=== PATIENT | female | born 1950 | race Hispanic/Latino ===

== ENCOUNTER 2017-01-07 14:54 | Inpatient (IN) | payer MEDICARE, OTHER ==
[2017-01-07 14:54] VITALS: BMI 33.4
[2017-01-07] MEDS ORDERED: Albuterol-Ipratrop 3 mg / 0.5 (3 ml) UD INH STA (15:32)
--- NOTE | 2017-01-07 15:51 | RAD ---
HISTORY: SOB COMPARISON: Chest x-ray performed 10/31/16 TECHNIQUE: Chest PA and lateral FINDINGS: Examination limited by habitus. LUNGS: No focal consolidation. Please note that chest x-ray has limited sensitivity for the detection of pulmonary masses. PLEURA: No significant pleural effusion identified. No definite pneumothorax . CARDIOVASCULAR: Cardiomegaly. Atherosclerotic calcifications of the aorta. OSSEOUS STRUCTURES: No acute osseous abnormality identified. VISUALIZED UPPER ABDOMEN: Unremarkable. OTHER FINDINGS: None. IMPRESSION: Cardiomegaly.
[2017-01-07] MEDS ORDERED: Albuterol-Ipratrop 3 mg / 0.5 (3 ml) UD ONE (16:01)
--- NOTE | 2017-01-07 16:40 | ED PDOC ---
HPI: General Adult Time Seen by Provider: 01/07/17 15:31 Chief Complaint (Nursing): Shortness Of Breath Chief Complaint (Provider): cough History Per: Patient History/Exam Limitations: no limitations Additional Complaint(s): 66yo female w/ Hx COPD is sent from Dr. Patterson's office for complaint of persistent cough, shortness of breath, sore throat, tactile fever, generalized malaise. She's been using nebulizers at home without relief. No recent hospitalizations. PMD: Leonardo Past Medical History Reviewed: Historical Data, Nursing Documentation, Vital Signs Vital Signs: Last Vital Signs Temp 100.4 F H 01/07/17 15:23 Pulse 63 01/07/17 15:23 Resp 20 01/07/17 15:23 BP 119/52 L 01/07/17 15:23 Pulse Ox 99 01/07/17 16:54 - Medical History PMH: Asthma, Gastritis, HTN, Migraine, Rheumatoid Arthritis Denies: HIV - Surgical History Surgical History: - Family History Family History: States: Unknown Family Hx - Home Medications Home Medications: Ambulatory Orders Medication Instructions Recorded Albuterol Sulfate [Proair Hfa] 2 puff IH Q6 PRN 02/15/15 Hydralazine Hydrochloride 50 mg PO TID 02/15/15 [Apresoline] Montelukast Sodium [Singulair] 10 mg PO HS 02/15/15 Albuterol/Ipratropium [Duoneb 3 3 ml INH RTID #0 neb 02/17/15 mg/0.5 mg (3 ml) UD] Aluminum Hydroxide/Magnesium 30 ml PO Q8 PRN #0 udc 02/17/15 [Maalox Plus 30 ml] Azithromycin 500MG/NS 250ml 500 mg IV DAILY #0 bag 02/17/15 [Zithromax 500mg in NS] Enoxaparin [Lovenox] 40 mg SC DAILY #0 syr 02/17/15 Ibuprofen [Motrin Tab] 600 mg PO Q8 PRN #0 tab 02/17/15 Lidocaine 5% [Lidoderm] 1 ea TD DAILY #0 patch 02/17/15 Metoprolol Tartrate [Lopressor] 25 mg PO DAILY #0 tab 02/17/15 Pantoprazole [Protonix EC Tab] 40 mg PO DAILY #0 ect 04/30/15 Valsartan [Diovan] 320 mg PO DAILY #0 tab 02/17/15 cefTRIAXone 1 gm [Rocephin 1 gram 1 gm IV DAILY #0 bag 02/17/15 IVPB] Azithromycin [Zithromax Z-Cosmo] 250 mg PO DAILY #0 tab 02/25/15 Promethazine [Promethazine HCl] 6.25 mg PO Q6 PRN #120 oz 02/25/15 Oxycodone HCl/Acetaminophen 1 tab PO Q6 #15 tab 05/09/15 [Percocet 325 mg-5 mg] DiphenhydrAMINE [Benadryl] 2 tab PO Q6 PRN #24 cap 01/19/16 Prednisone 3 tab PO DAILY #12 tablet 01/19/16 Prednisone 50 mg PO DAILY #5 tablet 06/17/16 - Allergies Allergies/Adverse Reactions: Allergies Allergy/AdvReac Type Severity Reaction Status Date / Time levofloxacin [From Levaquin] Allergy RASH Verified 06/17/16 01:03 shrimp Allergy RASH Verified 06/17/16 01:04 hair dye Allergy RASH Uncoded 06/17/16 01:04 Review of Systems ROS Statement: Except As Marked, All Systems Reviewed And Found Negative Constitutional: Positive for: Fever (tactile) ENT: Positive for: Throat Pain Respiratory: Positive for: Cough, Shortness of Breath Physical Exam - Reviewed Nursing Documentation Reviewed: Yes Vital Signs Reviewed: Yes - Physical Exam Appears: Positive for: Well, Non-toxic, No Acute Distress Head Exam: Positive for: ATRAUMATIC, NORMAL INSPECTION, NORMOCEPHALIC Skin: Positive for: Warm, Dry Eye Exam: Positive for: EOMI, PERRL Cardiovascular/Chest: Positive for: Regular Rate, Rhythm Respiratory: Positive for: Wheezing (bilaterally). Negative for: Rales, Rhonchi Gastrointestinal/Abdominal: Positive for: Soft. Negative for: Tenderness Extremity: Negative for: Other (edema) Neurologic/Psych: Positive for: Alert, Oriented - Laboratory Results Result Diagrams: 01/07/17 15:58 01/07/17 15:58 - ECG ECG: Positive for: Interpreted By Me ECG Rhythm: Positive for: Sinus Rhythm, ST/T Changes, Nonspecific Changes Rate: 91 O2 Sat by Pulse Oximetry: 99 (RA) Pulse Ox Interpretation: Normal - Radiology X-Ray: Read By Radiologist X-Ray Interpretation: No Acute Disease Medical Decision Making Medical Decision Making: Workup initiated for COPD exacerbation w low grade fever. Duoneb, solumedrol given. Family member also in ED sick w similar symptoms. Labs reviewed + flu trop neg EKG +changes inferiorlaterally. ASA 81mg ordered. Admit tele. Droplet isol. D/w Dr Patterson PMD. Disposition - Clinical Impression Clinical Impression: Influenza, Obstructive chronic bronchitis with exacerbation, Abnormal electrocardiography - Patient ED Disposition Is Patient to be Admitted: Yes Counseled Patient/Family Regarding: Studies Performed, Diagnosis, Need For Followup - Disposition Disposition: Routine/Home Disposition Time: 17:05 Condition: STABLE - Pt Status Changed To: Hospital Disposition Of: Inpatient - Admit Certification Admit to Inpatient:: After my assessment, the patient will require hospitalization for at least two midnights. This is because of the severity of symptoms shown, intensity of services needed, and/or the medical risk in this patient being treated as an outpatient. - POA Present On Arrival: None Additional Comments - Additional Comments Additional Comments: Scribe Attestation: Documented by Camilo Mosqueda acting as a scribe for Sukumar Comer DO. Provider Scribe Attestation: All medical record entries made by the Scribe were at my direction and personally dictated by me. I have reviewed the chart and agree that the record accurately reflects my personal performance of the history, physical exam, medical decision making, and the department course for this patient. I have also personally directed, reviewed, and agree with the discharge instructions and disposition.
[2017-01-07 17:02] LABS: BASO # 0.1 K/uL (0.0-0.2); BASO % 0.8 % (0.0-2.0); EOS % 0.2 % (0.0-4.0); HEMATOCRIT 36.1 % (34.0-47.0); LYMPH # 1.5 K/uL (1.0-4.3); LYMPH % 23.7 % (20.0-40.0); MEAN CELL VOLUME 77.2 fl (81.0-99.0); MEAN CORPUSCULAR HEMOGLOBIN 24.5 pg (27.0-31.0); MEAN CORPUSCULAR HGB CONC 31.8 g/dL (33.0-37.0); MEAN PLATELET VOLUME 8.7 fl (7.2-11.7); MONO # 0.8 K/uL (0.0-0.8); MONO % 12.3 % (0.0-10.0); NEUT # 3.9 K/uL (1.8-7.0); NRBC % 0.1 % (0.0-0.0); WHITE BLOOD COUNT 6.3 K/uL (4.8-10.8)
[2017-01-07 17:09] LABS: ALB/GLOB RATIO 0.9 (1.0-2.1); ALKALINE PHOSPHATASE 92 U/L (38-126); ALT/SGPT 38 U/L (9-52); AST/SGOT 48 U/L (14-36); BILIRUBIN,TOTAL 0.3 mg/dl (0.2-1.3); BLOOD UREA NITROGEN 48 mg/dl (7-17); CALCIUM 9.3 mg/dL (8.4-10.2); CARBON DIOXIDE 20 mmol/L (22-30); CHLORIDE 100 mmol/L (98-107); GFR AFRICAN-AMERICAN 26; GLUCOSE,RANDOM 161 mg/dL (65-105); POTASSIUM 3.8 MMOL/L (3.6-5.0); SODIUM 136 mmol/l (132-148); TOTAL PROTEIN 8.6 G/DL (6.3-8.2)
[2017-01-08] MEDS ORDERED: Sodium Chloride 3% for Inhalation 4 ML VIAL.NEB IH PRN (04:17)
--- NOTE | 2017-01-08 07:15 | CARD ---
APPROVED REPORT EKG Measurement Heart [id number] <Conclusion> Normal sinus rhythm ST & T wave abnormality, consider inferior ischemia ST & T wave abnormality, consider anterolateral ischemia Abnormal ECG
[2017-01-08 07:30] LABS: BASO % 0.6 % (0.0-2.0); HEMATOCRIT 33.5 % (34.0-47.0); LYMPH # 0.9 K/uL (1.0-4.3); LYMPH % 32.4 % (20.0-40.0); MEAN CORPUSCULAR HEMOGLOBIN 24.8 pg (27.0-31.0); MEAN CORPUSCULAR HGB CONC 32.6 g/dL (33.0-37.0); MEAN PLATELET VOLUME 8.6 fl (7.2-11.7); MONO # 0.3 K/uL (0.0-0.8); MONO % 9.4 % (0.0-10.0); NEUT # 1.6 K/uL (1.8-7.0); NEUT % 57.6 % (50.0-75.0); NRBC % 0.1 % (0.0-0.0); RED CELL DISTRIBUTION WIDTH 17.6 % (11.5-14.5); WHITE BLOOD COUNT 2.8 K/uL (4.8-10.8)
[2017-01-08 07:51] LABS: CALCIUM 9.5 mg/dL (8.4-10.2); POTASSIUM 4.5 MMOL/L (3.6-5.0); TOTAL PROTEIN 8.2 G/DL (6.3-8.2)
[2017-01-08 07:52] LABS: ALB/GLOB RATIO 0.9 (1.0-2.1); BILIRUBIN,TOTAL 0.1 mg/dl (0.2-1.3)
[2017-01-08] MEDS: Albuterol-Ipratrop 3 mg / 0.5 (3 ml) UD INH SCH ×3 (07:53→19:21)
[2017-01-08] MEDS: Pantoprazole 40 mg EC Tab PO SCH (08:24)
[2017-01-08] MEDS: Naproxen 500 MG TAB PO SCH ×2 (08:25→21:39)
[2017-01-08] MEDS: methylPREDNISolone 60 MG in Sodium Chloride 0.9% 50 ML IVPB SCH ×2 (08:26→16:35)
[2017-01-08] MEDS: Dextrose 5%/0.45% NS 1,000 ML IV SCH (09:05)
--- NOTE | 2017-01-08 11:29 | CP.PCM.CON ---
History of Present Illness - History of Present Illness History of Present Illness: THE PATIENT IS A 66 YEAR OLD MALE WITH A HISTORY OF HYPERTENSION, CHEST PAIN AND COPD. SHE HAD CHEST PAIN ON AND OFF FOR A FEW YEARS AND HAD A RECENT STRESS TEST THAT WAS NORMAL. SHE NOW HAS COPD EXACERBATION FROM THE FLU AND WAS ADMITTED. CARDIOLOGY WAS ASKED TO SEE HER FOR HER HYPERTENSION. Past Patient History - Past Medical History & Family History Past Medical History?: Yes - Past Social History Smoking Status: Unknown If Ever Smoked - CARDIAC Hx Cardiac Disorders: Yes (HTN) - PULMONARY Hx Respiratory Disorders: Yes (COPD/chronic bronchitis) - NEUROLOGICAL Hx Neurological Disorder: Yes (Migraines) - HEENT Hx HEENT Problems: Yes - HEMATOLOGICAL/ONCOLOGICAL Hx Human Immunodeficiency Virus (HIV): No - MUSCULOSKELETAL/RHEUMATOLOGICAL Hx Musculoskeletal Disorders: Yes (Arthritis) Hx Falls: No - GASTROINTESTINAL Hx Gastritis: Yes - PSYCHIATRIC Hx Psychophysiologic Disorder: Yes Hx Substance Use: No - SURGICAL HISTORY Hx Surgeries: Yes Hx Section: Yes - ANESTHESIA Hx Anesthesia: Yes Hx Anesthesia Reactions: No Meds Allergies/Adverse Reactions: Allergies Allergy/AdvReac Type Severity Reaction Status Date / Time levofloxacin [From Levaquin] Allergy RASH Verified 06/17/16 01:03 shrimp Allergy RASH Verified 06/17/16 01:04 hair dye Allergy RASH Uncoded 06/17/16 01:04 - Medications Medications: Current Medications Albuterol/Ipratropium (Duoneb 3 Mg/0.5 Mg (3 Ml) Ud) 3 ml INH RQ6 [facility] Last Admin: 01/08/17 07:53 Dose: 3 ml Amlodipine Besylate (Norvasc) 5 mg PO DAILY [facility] Last Admin: 01/08/17 11:11 Dose: 5 mg Hydralazine HCl (Apresoline) 50 mg PO TID [facility] Last Admin: 01/08/17 11:09 Dose: Not Given Ceftriaxone Sodium 1 gm/ (Sodium Chloride) 100 mls @ 100 mls/hr IVPB DAILY [facility] Last Admin: 01/08/17 08:27 Dose: 100 mls/hr Methylprednisolone 60 mg/ (Sodium Chloride) 50.96 mls @ 100 mls/hr IVPB Q8 [facility] Last Admin: 01/08/17 08:26 Dose: 100 mls/hr Dextrose/Sodium Chloride (Dextrose 5%/0.45% Ns 1000 Ml) 1,000 mls @ 60 mls/hr IV .[id number] [facility] Stop: 01/09/17 08:31 Last Admin: 01/08/17 09:05 Dose: Not Given Naproxen (Naproxen) 500 mg PO Q12 [facility] Last Admin: 01/08/17 08:25 Dose: 500 mg Oseltamivir Phosphate (Tamiflu Cap) 75 mg PO BID [facility] Last Admin: 01/08/17 08:24 Dose: 75 mg Pantoprazole Sodium (Protonix Ec Tab) 40 mg PO DAILY [facility] Last Admin: 01/08/17 08:24 Dose: 40 mg Promethazine HCl/Dextromethorphan (Phenergan Dm Syrup) 5 ml PO Q4 PRN PRN Reason: Cough Physical Exam - Respiratory Exam Respiratory Exam: Wheezes - Cardiovascular Exam Cardiovascular Exam: REGULAR RHYTHM, +S1, +S2 - Extremities Exam Extremities exam: Positive for: normal inspection Results - Vital Signs Recent Vital Signs: Last Vital Signs Temp 98.3 F 01/08/17 08:18 Pulse 56 L 01/08/17 11:11 Resp 18 01/08/17 08:18 BP 121/69 01/08/17 11:11 Pulse Ox 96 01/08/17 08:18 - Labs Result Diagrams: 01/08/17 06:25 01/08/17 06:25 Labs: Laboratory Results - last 24 hr 01/08/17 06:25 WBC 2.8 L D RBC 4.41 Hgb 10.9 L Hct 33.5 L MCV 76.0 L MCH 24.8 L MCHC 32.6 L RDW 17.6 H Plt Count 250 MPV 8.6 Neut % (Auto) 57.6 Lymph % (Auto) 32.4 [place] % (Auto) 9.4 Eos % (Auto) 0.0 Baso % (Auto) 0.6 Neut # 1.6 L Lymph # 0.9 L [place] # 0.3 Eos # 0.0 Baso # 0.0 Sodium 140 Potassium 4.5 Chloride 102 Carbon Dioxide 22 Anion Gap 21 H BUN 52 H Creatinine 1.3 H Est GFR ( Amer) 50 Est GFR (Non-Af Amer) 41 Random Glucose 321 H Calcium 9.5 Total Bilirubin 0.1 L AST 34 ALT 28 Alkaline Phosphatase 93 Total Protein 8.2 Albumin 3.9 Globulin 4.3 H Albumin/Globulin Ratio 0.9 L Assessment & Plan - Assessment and Plan (Free Text) Assessment: FLU WITH COPD EXACERBATION HYPERTENSION Plan: THE PATIENT IS ON O2, AMLODIPINE AND HYDRALAZINE WELL TAMIFLU, ANTIBIOTICS AND VASODILATORS METOPROLOL HELD FOR NOW DUE TO WHEEZING
--- NOTE | 2017-01-08 12:20 | HP ---
The patient is a 66-year-old female who was admitted via the Emergency Room after she was seen in the office complaining of progressively worsening shortness of breath, exercise intolerance, chest tight ness for the past several days prior to presentation. She has been exposed to the daughter who has t he flu and was sent to the Emergency Room where evaluation indicates that she also has the flu. She was admitted with acute exacerbation of chronic obstructive pulmonary disease secondary to the flu. PAST MEDICAL HISTORY: Remarkable for COPD, hypertension, hyperlipidemia, arthritis. FAMILY HISTORY: Noncontributory. SOCIAL HISTORY: She does not smoke or drink. REVIEW OF SYSTEMS: Essentially unremarkable. PHYSICAL EXAMINATION: GENERAL: The patient is alert and oriented, appears to be in some distress because of chest tightnes s, shortness of breath and exercise intolerance. VITAL SIGNS: Blood pressure 121/69, pulse of 56, respiratory rate 18, O2 sat 96% on 3 liters nasal c annula. SKIN: Shows fair turgor. HEENT: Pupils equal and reactive to light and accommodation. Mouth shows fair hygiene with mild muc us engorgement of pharynx. NECK: JVP flat. LUNGS: Show poor aeration bilaterally with rales and wheezing, dullness at the bases. HEART: S1, S2. ABDOMEN: Soft, nontender, no organomegaly. EXTREMITIES: Shows no edema or cyanosis. CENTRAL NERVOUS SYSTEM: Grossly intact. LABORATORY DATA: Remarkable for WBC of 2.8, hemoglobin 10.9, platelet count 250,000. Sodium 140, po tassium 4.5, BUN of 52, creatinine 1.3. Troponin less than 0.012. Chest x-ray shows no acute cardio pulmonary pathology except for mild cardiomegaly and calcification of the aorta. EKG: Normal sinus rhythm, ST-T wave abnormality, consider inferior ischemia, consider anterolateral ischemia. IMPRESSION: Acute exacerbation of chronic obstructive pulmonary disease secondary to the flu, leukop enia secondary to the flu, hypertension by history, arthritis by history. PLAN: Continue IV antibiotics, Tamiflu for the flu, and aerosolized bronchodilators. Repeat labs. Monitor blood pressure closely. Benjamin Patterson MD cc: 62 TT: 01/08/2017 12:20:04 sn
[2017-01-09] MEDS: Albuterol-Ipratrop 3 mg / 0.5 (3 ml) UD INH SCH ×4 (01:04→19:06)
[2017-01-09] MEDS: methylPREDNISolone 60 MG in Sodium Chloride 0.9% 50 ML IVPB SCH ×2 (01:07→10:00)
[2017-01-09] MEDS: Dextrose 5%/0.45% NS 1,000 ML IV SCH (05:07)
[2017-01-09 07:05] LABS: BASO % 0.1 % (0.0-2.0); HEMATOCRIT 33.9 % (34.0-47.0); LYMPH # 0.9 K/uL (1.0-4.3); LYMPH % 12.1 % (20.0-40.0); MEAN CELL VOLUME 75.9 fl (81.0-99.0); MEAN CORPUSCULAR HEMOGLOBIN 24.7 pg (27.0-31.0); MEAN CORPUSCULAR HGB CONC 32.5 g/dL (33.0-37.0); MEAN PLATELET VOLUME 8.6 fl (7.2-11.7); MONO # 0.5 K/uL (0.0-0.8); MONO % 6.1 % (0.0-10.0); NEUT # 6.4 K/uL (1.8-7.0); NEUT % 81.7 % (50.0-75.0); RED CELL DISTRIBUTION WIDTH 17.8 % (11.5-14.5); WHITE BLOOD COUNT 7.8 K/uL (4.8-10.8)
[2017-01-09 07:29] LABS: BLOOD UREA NITROGEN 43 mg/dl (7-17); CALCIUM 9.5 mg/dL (8.4-10.2); CARBON DIOXIDE 20 mmol/L (22-30); CHLORIDE 108 mmol/L (98-107); GFR AFRICAN-AMERICAN > 60; GLUCOSE,RANDOM 322 mg/dL (65-105); POTASSIUM 4.5 MMOL/L (3.6-5.0); SODIUM 140 mmol/l (132-148)
--- NOTE | 2017-01-09 08:46 | CP.PCM.PN ---
Subjective - Date & Time of Evaluation Date of Evaluation: 01/09/17 Time of Evaluation: 08:48 - Subjective Subjective: STILL COUGHING WITH SORETHROAT AND SOB Objective - Vital Signs/Intake and Output Vital Signs (last 24 hours): Temp Pulse Resp BP Pulse Ox 97.9 F 79 20 158/77 H 99 01/09/17 08:18 01/09/17 08:18 01/09/17 08:18 01/09/17 08:18 01/09/17 08:18 - Medications Medications: Current Medications Albuterol/Ipratropium (Duoneb 3 Mg/0.5 Mg (3 Ml) Ud) 3 ml INH RQ6 [facility] Last Admin: 01/09/17 07:28 Dose: 3 ml Amlodipine Besylate (Norvasc) 5 mg PO DAILY [facility] Last Admin: 01/08/17 11:11 Dose: 5 mg Hydralazine HCl (Apresoline) 50 mg PO TID [facility] Last Admin: 01/08/17 16:03 Dose: 50 mg Ceftriaxone Sodium 1 gm/ (Sodium Chloride) 100 mls @ 100 mls/hr IVPB DAILY [facility] Last Admin: 01/08/17 08:27 Dose: 100 mls/hr Methylprednisolone 60 mg/ (Sodium Chloride) 50.96 mls @ 100 mls/hr IVPB Q8 [facility] Last Admin: 01/09/17 01:07 Dose: 100 mls/hr Naproxen (Naproxen) 500 mg PO Q12 [facility] Last Admin: 01/08/17 21:39 Dose: 500 mg Oseltamivir Phosphate (Tamiflu Cap) 75 mg PO BID [facility] Last Admin: 01/08/17 16:04 Dose: 75 mg Pantoprazole Sodium (Protonix Ec Tab) 40 mg PO DAILY [facility] Last Admin: 01/08/17 08:24 Dose: 40 mg Promethazine HCl/Dextromethorphan (Phenergan Dm Syrup) 5 ml PO Q4 PRN PRN Reason: Cough - Labs Labs: 01/09/17 06:35 01/09/17 06:35 - Constitutional Appears: In Acute Distress - Head Exam Head Exam: ATRAUMATIC, NORMAL INSPECTION, NORMOCEPHALIC - Eye Exam Eye Exam: EOMI, Normal appearance, PERRL Pupil Exam: NORMAL ACCOMODATION, PERRL - ENT Exam ENT Exam: Mucous Membranes Moist, Normal Exam - Neck Exam Neck Exam: Full ROM, Normal Inspection. absent: Lymphadenopathy - Respiratory Exam Respiratory Exam: Decreased Breath Sounds, Rales, Wheezes, NORMAL BREATHING PATTERN - Cardiovascular Exam Cardiovascular Exam: REGULAR RHYTHM, +S1, +S2. absent: Murmur - GI/Abdominal Exam GI & Abdominal Exam: Soft, Normal Bowel Sounds. absent: Tenderness - Rectal Exam Rectal Exam: NORMAL INSPECTION - Extremities Exam Extremities Exam: Full ROM, Normal Capillary Refill, Normal Inspection. absent : Joint Swelling, Pedal Edema - Back Exam Back Exam: NORMAL INSPECTION - Neurological Exam Neurological Exam: Alert, Awake, CN II-XII Intact, Normal Gait, Oriented x3 - Psychiatric Exam Psychiatric exam: Normal Affect, Normal Mood - Skin Skin Exam: Dry, Intact, Normal Color, Warm Assessment and Plan - Assessment and Plan (Free Text) Assessment: ACUTE EXAC OF COPD HTN FLU URI ABNORMAL EKG DUE TO HTN HEART DZ Plan: CONTINUE RX ORDERED TRANSFER TO REGULAR FLOOR
[2017-01-09] MEDS: Naproxen 500 MG TAB PO SCH ×2 (08:53→21:05)
[2017-01-09] MEDS: Pantoprazole 40 mg EC Tab PO SCH (08:54)
[2017-01-09] MEDS: Mag&Al/Simet/Diphen/Lido 237 ML KIT PO SCH (10:00)
[2017-01-09] MEDS ORDERED: Insulin Regular 100 units/ml SC ONE (12:03)
--- NOTE | 2017-01-09 13:00 | CP.PCM.PN ---
Subjective - Date & Time of Evaluation Date of Evaluation: 01/09/17 Time of Evaluation: 12:30 - Subjective Subjective: STILL WITH COUGH AND SOB NO CHEST PAIN Objective - Vital Signs/Intake and Output Vital Signs (last 24 hours): Temp Pulse Resp BP Pulse Ox 97.7 F 72 18 157/71 H 97 01/09/17 12:29 01/09/17 12:29 01/09/17 12:29 01/09/17 12:29 01/09/17 12:29 - Medications Medications: Current Medications Acetylcysteine (Acetylcysteine 20%) 2 ml INH RBID [facility] Albuterol/Ipratropium (Duoneb 3 Mg/0.5 Mg (3 Ml) Ud) 3 ml INH RQ6 [facility] Last Admin: 01/09/17 07:28 Dose: 3 ml Amlodipine Besylate (Norvasc) 5 mg PO DAILY [facility] Last Admin: 01/09/17 08:54 Dose: 5 mg Hydralazine HCl (Apresoline) 50 mg PO TID [facility] Last Admin: 01/09/17 12:18 Dose: 50 mg Ceftriaxone Sodium 1 gm/ (Sodium Chloride) 100 mls @ 100 mls/hr IVPB DAILY [facility] Last Admin: 01/09/17 08:54 Dose: 100 mls/hr Methylprednisolone 40 mg/ (Sodium Chloride) 50.64 mls @ 100 mls/hr IVPB Q12 [facility] Naproxen (Naproxen) 500 mg PO Q12 [facility] Last Admin: 01/09/17 08:53 Dose: 500 mg Oseltamivir Phosphate (Tamiflu Cap) 75 mg PO BID [facility] Last Admin: 01/09/17 08:55 Dose: 75 mg Pantoprazole Sodium (Protonix Ec Tab) 40 mg PO DAILY [facility] Last Admin: 01/09/17 08:54 Dose: 40 mg Promethazine HCl/Dextromethorphan (Phenergan Dm Syrup) 5 ml PO Q4 PRN PRN Reason: Cough Saliva Substitute (First Magic Mouthwash) 10 ml PO TID [facility] Last Admin: 01/09/17 10:00 Dose: 10 ml - Labs Labs: 01/09/17 06:35 01/09/17 06:35 - Respiratory Exam Respiratory Exam: Rhonchi, Wheezes - Cardiovascular Exam Cardiovascular Exam: REGULAR RHYTHM - Extremities Exam Extremities Exam: Normal Inspection Assessment and Plan - Assessment and Plan (Free Text) Assessment: FLU WITH COPD EXACERBATION HYPERTENSION Plan: CONTINUE APRESOLINE, AMLODIPINE, TAMIFLU AND ANTIBIOTICS
[2017-01-09] MEDS: Acetylcysteine 20% Inhal Soln (4ml) INH SCH (19:06)
[2017-01-09] MEDS ORDERED: methylPREDNISolone 40 MG in Sodium Chloride 0.9% 50 ML IVPB SCH (21:00)
[2017-01-09] MEDS: Promethazine DM 6.25 mg-15 mg/5 ml Syrup PO PRN (21:08)
[2017-01-10] MEDS: Albuterol-Ipratrop 3 mg / 0.5 (3 ml) UD INH SCH ×4 (01:08→19:31)
[2017-01-10] MEDS: Promethazine DM 6.25 mg-15 mg/5 ml Syrup PO PRN ×2 (05:05→20:25)
[2017-01-10] MEDS: Acetylcysteine 20% Inhal Soln (4ml) INH SCH ×2 (07:48→19:31)
--- NOTE | 2017-01-10 08:11 | CP.PCM.PN ---
Subjective - Date & Time of Evaluation Date of Evaluation: 01/10/17 Time of Evaluation: 08:12 - Subjective Subjective: STILL COUGHING AND DYSPNEIC Objective - Vital Signs/Intake and Output Vital Signs (last 24 hours): Temp Pulse Resp BP Pulse Ox 97.7 F 63 18 156/72 H 100 01/10/17 04:56 01/10/17 04:56 01/10/17 04:56 01/10/17 04:56 01/10/17 04:56 - Medications Medications: Current Medications Acetylcysteine (Acetylcysteine 20%) 2 ml INH RBID [facility] Last Admin: 01/10/17 07:48 Dose: 2 ml Albuterol/Ipratropium (Duoneb 3 Mg/0.5 Mg (3 Ml) Ud) 3 ml INH RQ6 [facility] Last Admin: 01/10/17 07:48 Dose: 3 ml Amlodipine Besylate (Norvasc) 5 mg PO DAILY [facility] Last Admin: 01/09/17 08:54 Dose: 5 mg Hydralazine HCl (Apresoline) 50 mg PO TID [facility] Last Admin: 01/09/17 17:27 Dose: 50 mg Ceftriaxone Sodium 1 gm/ (Sodium Chloride) 100 mls @ 100 mls/hr IVPB DAILY [facility] Last Admin: 01/09/17 08:54 Dose: 100 mls/hr Methylprednisolone 40 mg/ (Sodium Chloride) 50.64 mls @ 100 mls/hr IVPB Q12 [facility] Last Admin: 01/09/17 21:07 Dose: 100 mls/hr Naproxen (Naproxen) 500 mg PO Q12 [facility] Last Admin: 01/09/17 21:05 Dose: 500 mg Oseltamivir Phosphate (Tamiflu Cap) 75 mg PO BID [facility] Last Admin: 01/09/17 17:28 Dose: 75 mg Pantoprazole Sodium (Protonix Ec Tab) 40 mg PO DAILY [facility] Last Admin: 01/09/17 08:54 Dose: 40 mg Promethazine HCl/Dextromethorphan (Phenergan Dm Syrup) 5 ml PO Q4 PRN PRN Reason: Cough Last Admin: 01/10/17 05:05 Dose: 5 ml Saliva Substitute (First Magic Mouthwash) 10 ml PO TID [facility] Last Admin: 01/09/17 10:00 Dose: 10 ml - Labs Labs: 01/09/17 06:35 03/22/17 06:35 - Constitutional Appears: Well - Head Exam Head Exam: ATRAUMATIC, NORMAL INSPECTION, NORMOCEPHALIC - Eye Exam Eye Exam: EOMI, Normal appearance, PERRL Pupil Exam: NORMAL ACCOMODATION, PERRL - ENT Exam ENT Exam: Mucous Membranes Moist, Normal Exam - Neck Exam Neck Exam: Full ROM, Normal Inspection. absent: Lymphadenopathy - Respiratory Exam Respiratory Exam: Decreased Breath Sounds, Clear to Ausculation Bilateral, Rales , NORMAL BREATHING PATTERN - Cardiovascular Exam Cardiovascular Exam: REGULAR RHYTHM, +S1, +S2. absent: Murmur - GI/Abdominal Exam GI & Abdominal Exam: Soft, Normal Bowel Sounds. absent: Tenderness - Rectal Exam Rectal Exam: NORMAL INSPECTION - Extremities Exam Extremities Exam: Full ROM, Normal Capillary Refill, Normal Inspection. absent : Joint Swelling, Pedal Edema - Back Exam Back Exam: NORMAL INSPECTION - Neurological Exam Neurological Exam: Alert, Awake, CN II-XII Intact, Normal Gait, Oriented x3 - Psychiatric Exam Psychiatric exam: Normal Affect, Normal Mood - Skin Skin Exam: Dry, Intact, Normal Color, Warm Assessment and Plan - Assessment and Plan (Free Text) Assessment: ACUTE EXAC OF COPD FLU HTN HYPERGLYCEMIA DUE TO STEROIDS Plan: CONTINUE PRESENT RX TAPER STEROIDS
[2017-01-10] MEDS ORDERED: Sodium Chloride 3% for Inhalation 4 ML VIAL.NEB IH PRN (08:38)
--- NOTE | 2017-01-10 10:15 | CP.PCM.PN ---
Subjective - Date & Time of Evaluation Date of Evaluation: 01/10/17 Time of Evaluation: 07:45 - Subjective Subjective: STILL WITH SOB AND COUGH Objective - Vital Signs/Intake and Output Vital Signs (last 24 hours): Temp Pulse Resp BP Pulse Ox 97.1 F L 66 20 145/80 97 01/10/17 08:28 01/10/17 08:28 01/10/17 08:28 01/10/17 08:28 01/10/17 08:28 - Medications Medications: Current Medications Acetylcysteine (Acetylcysteine 20%) 2 ml INH RBID [facility] Last Admin: 01/10/17 07:48 Dose: 2 ml Albuterol/Ipratropium (Duoneb 3 Mg/0.5 Mg (3 Ml) Ud) 3 ml INH RQ6 [facility] Last Admin: 01/10/17 07:48 Dose: 3 ml Amlodipine Besylate (Norvasc) 5 mg PO DAILY [facility] Last Admin: 01/09/17 08:54 Dose: 5 mg Hydralazine HCl (Apresoline) 50 mg PO TID [facility] Last Admin: 01/09/17 17:27 Dose: 50 mg Ceftriaxone Sodium 1 gm/ (Sodium Chloride) 100 mls @ 100 mls/hr IVPB DAILY [facility] Last Admin: 01/09/17 08:54 Dose: 100 mls/hr Methylprednisolone 40 mg/ (Sodium Chloride) 50.64 mls @ 100 mls/hr IVPB DAILY [facility] Naproxen (Naproxen) 500 mg PO Q12 [facility] Last Admin: 01/09/17 21:05 Dose: 500 mg Oseltamivir Phosphate (Tamiflu Cap) 75 mg PO BID [facility] Last Admin: 01/09/17 17:28 Dose: 75 mg Pantoprazole Sodium (Protonix Ec Tab) 40 mg PO DAILY [facility] Last Admin: 01/09/17 08:54 Dose: 40 mg Promethazine HCl/Dextromethorphan (Phenergan Dm Syrup) 5 ml PO Q4 PRN PRN Reason: Cough Last Admin: 01/10/17 05:05 Dose: 5 ml Saliva Substitute (First Magic Mouthwash) 10 ml PO TID [facility] Last Admin: 01/09/17 10:00 Dose: 10 ml - Labs Labs: 01/09/17 06:35 01/09/17 06:35 - Respiratory Exam Respiratory Exam: Rhonchi, Wheezes - Cardiovascular Exam Cardiovascular Exam: REGULAR RHYTHM, +S1, +S2 - Extremities Exam Extremities Exam: Normal Inspection Assessment and Plan - Assessment and Plan (Free Text) Assessment: FLU WITH COPD EXACERBATION HYPERTENSION Plan: CONTINUE TAMIFLU, ANTIBIOTICS, HYDRALAZINE, AMLODIPINE
[2017-01-10] MEDS: Naproxen 500 MG TAB PO SCH ×2 (11:01→20:23)
[2017-01-10] MEDS: Mag&Al/Simet/Diphen/Lido 237 ML KIT PO SCH ×3 (11:01→16:18)
[2017-01-10] MEDS: Pantoprazole 40 mg EC Tab PO SCH (11:04)
[2017-01-10] MEDS: methylPREDNISolone 40 MG in Sodium Chloride 0.9% 50 ML IVPB SCH (11:05)
[2017-01-11] MEDS: Albuterol-Ipratrop 3 mg / 0.5 (3 ml) UD INH SCH ×4 (01:00→21:01)
[2017-01-11] MEDS: Acetylcysteine 20% Inhal Soln (4ml) INH SCH ×2 (07:42→20:59)
[2017-01-11] MEDS: Mag&Al/Simet/Diphen/Lido 237 ML KIT PO SCH ×3 (10:12→18:09)
[2017-01-11] MEDS: Naproxen 500 MG TAB PO SCH ×2 (10:14→20:53)
[2017-01-11] MEDS: Pantoprazole 40 mg EC Tab PO SCH (10:15)
[2017-01-11] MEDS: methylPREDNISolone 40 MG in Sodium Chloride 0.9% 50 ML IVPB SCH (10:16)
[2017-01-11] MEDS: Promethazine DM 6.25 mg-15 mg/5 ml Syrup PO PRN (10:16)
--- NOTE | 2017-01-11 11:23 | CP.PCM.PN ---
Subjective - Date & Time of Evaluation Date of Evaluation: 01/11/17 Time of Evaluation: 10:00 - Subjective Subjective: FEELING BETTER BUT STILL WITH COUGH AND SOB Objective - Vital Signs/Intake and Output Vital Signs (last 24 hours): Temp Pulse Resp BP Pulse Ox 97.9 F 60 20 164/84 H 95 01/11/17 08:27 01/11/17 10:13 01/11/17 08:27 01/11/17 10:13 01/11/17 08:27 - Medications Medications: Current Medications Acetylcysteine (Acetylcysteine 20%) 2 ml INH RBID [facility] Last Admin: 01/11/17 07:42 Dose: Not Given Albuterol/Ipratropium (Duoneb 3 Mg/0.5 Mg (3 Ml) Ud) 3 ml INH RQ6 [facility] Last Admin: 01/11/17 07:43 Dose: 3 ml Amlodipine Besylate (Norvasc) 5 mg PO DAILY [facility] Last Admin: 01/11/17 10:13 Dose: 5 mg Hydralazine HCl (Apresoline) 50 mg PO TID [facility] Last Admin: 01/11/17 10:13 Dose: 50 mg Ceftriaxone Sodium 1 gm/ (Sodium Chloride) 100 mls @ 100 mls/hr IVPB DAILY [facility] Last Admin: 01/11/17 10:17 Dose: 100 mls/hr Methylprednisolone 40 mg/ (Sodium Chloride) 50.64 mls @ 100 mls/hr IVPB DAILY [facility] Last Admin: 01/11/17 10:16 Dose: 100 mls/hr Naproxen (Naproxen) 500 mg PO Q12 [facility] Last Admin: 01/11/17 10:14 Dose: 500 mg Oseltamivir Phosphate (Tamiflu Cap) 75 mg PO BID [facility] Last Admin: 01/11/17 10:15 Dose: 75 mg Pantoprazole Sodium (Protonix Ec Tab) 40 mg PO DAILY [facility] Last Admin: 01/11/17 10:15 Dose: 40 mg Promethazine HCl/Dextromethorphan (Phenergan Dm Syrup) 5 ml PO Q4 PRN PRN Reason: Cough Last Admin: 01/11/17 10:16 Dose: 5 ml Saliva Substitute (First Magic Mouthwash) 10 ml PO TID [facility] Last Admin: 01/11/17 10:12 Dose: 10 ml - Labs Labs: 01/09/17 06:35 03/22/17 06:35 - Respiratory Exam Respiratory Exam: Rhonchi - Cardiovascular Exam Cardiovascular Exam: REGULAR RHYTHM, +S1, +S2 - Extremities Exam Extremities Exam: Normal Inspection Assessment and Plan - Assessment and Plan (Free Text) Assessment: FLU WITH COPD EXACERBATION HYPERTENSION Plan: CONTINUE AMLODIPINE, HYDRALAZINE, TAMIFLU AND ANTIBIOTICS
[2017-01-11] MEDS ORDERED: Sodium Chloride 3% for Inhalation 4 ML VIAL.NEB IH PRN (12:06)
--- NOTE | 2017-01-11 15:20 | CP.PCM.PN ---
Subjective - Date & Time of Evaluation Date of Evaluation: 01/11/17 Time of Evaluation: 15:20 - Subjective Subjective: STILL COUGHING WITH MINIMAL WHEEZING Objective - Vital Signs/Intake and Output Vital Signs (last 24 hours): Temp Pulse Resp BP Pulse Ox 99 F 79 18 147/77 96 01/11/17 13:00 01/11/17 13:00 01/11/17 13:00 01/11/17 13:00 01/11/17 13:00 - Medications Medications: Current Medications Acetylcysteine (Acetylcysteine 20%) 2 ml INH RBID [facility] Last Admin: 01/11/17 07:42 Dose: Not Given Albuterol/Ipratropium (Duoneb 3 Mg/0.5 Mg (3 Ml) Ud) 3 ml INH RQ6 [facility] Last Admin: 01/11/17 13:33 Dose: 3 ml Amlodipine Besylate (Norvasc) 10 mg PO DAILY [facility] Hydralazine HCl (Apresoline) 50 mg PO TID [facility] Last Admin: 01/11/17 12:54 Dose: 50 mg Ceftriaxone Sodium 1 gm/ (Sodium Chloride) 100 mls @ 100 mls/hr IVPB DAILY [facility] Last Admin: 01/11/17 10:17 Dose: 100 mls/hr Methylprednisolone 40 mg/ (Sodium Chloride) 50.64 mls @ 100 mls/hr IVPB DAILY [facility] Last Admin: 01/11/17 10:16 Dose: 100 mls/hr Naproxen (Naproxen) 500 mg PO Q12 [facility] Last Admin: 01/11/17 10:14 Dose: 500 mg Oseltamivir Phosphate (Tamiflu Cap) 75 mg PO BID [facility] Last Admin: 01/11/17 10:15 Dose: 75 mg Pantoprazole Sodium (Protonix Ec Tab) 40 mg PO DAILY [facility] Last Admin: 01/11/17 10:15 Dose: 40 mg Promethazine HCl/Dextromethorphan (Phenergan Dm Syrup) 5 ml PO Q4 PRN PRN Reason: Cough Last Admin: 01/11/17 10:16 Dose: 5 ml Saliva Substitute (First Magic Mouthwash) 10 ml PO TID [facility] Last Admin: 01/11/17 12:55 Dose: 10 ml - Labs Labs: 01/09/17 06:35 01/09/17 06:35 - Constitutional Appears: Chronically Ill - Head Exam Head Exam: ATRAUMATIC, NORMAL INSPECTION, NORMOCEPHALIC - Eye Exam Eye Exam: EOMI, Normal appearance, PERRL Pupil Exam: NORMAL ACCOMODATION, PERRL - ENT Exam ENT Exam: Mucous Membranes Moist, Normal Exam - Neck Exam Neck Exam: Full ROM, Normal Inspection. absent: Lymphadenopathy - Respiratory Exam Respiratory Exam: Decreased Breath Sounds, Rales, Wheezes, NORMAL BREATHING PATTERN - Cardiovascular Exam Cardiovascular Exam: REGULAR RHYTHM, +S1, +S2. absent: Murmur - GI/Abdominal Exam GI & Abdominal Exam: Soft, Normal Bowel Sounds. absent: Tenderness - Rectal Exam Rectal Exam: NORMAL INSPECTION - Extremities Exam Extremities Exam: Full ROM, Normal Capillary Refill, Normal Inspection. absent : Joint Swelling, Pedal Edema - Back Exam Back Exam: NORMAL INSPECTION - Neurological Exam Neurological Exam: Alert, Awake, CN II-XII Intact, Normal Gait, Oriented x3 - Psychiatric Exam Psychiatric exam: Normal Affect, Normal Mood - Skin Skin Exam: Dry, Intact, Normal Color, Warm Assessment and Plan - Assessment and Plan (Free Text) Assessment: ACUTE EXAC OF COPD HTN URI FLU Plan: D/C IN AM IF STABLE
[2017-01-11] MEDS ORDERED: Insulin Regular 100 units/ml SC ONE (22:30)
[2017-01-12] MEDS: Albuterol-Ipratrop 3 mg / 0.5 (3 ml) UD INH SCH ×2 (01:06→08:01)
[2017-01-12] MEDS: Acetylcysteine 20% Inhal Soln (4ml) INH SCH (08:02)
[2017-01-12 08:25] VITALS: BP 161/88; PULSE 64; RESP 20; TEMP 97.4; O2SAT 96
[2017-01-12] MEDS: Mag&Al/Simet/Diphen/Lido 237 ML KIT PO SCH (09:17)
[2017-01-12] MEDS: Promethazine DM 6.25 mg-15 mg/5 ml Syrup PO PRN (09:18)
[2017-01-12] MEDS: Naproxen 500 MG TAB PO SCH (09:19)
[2017-01-12] MEDS: Pantoprazole 40 mg EC Tab PO SCH (09:19)
--- NOTE | 2017-01-12 09:27 | CP.PCM.DIS ---
Provider - Provider Date of Admission: 01/07/17 17:27 Attending physician: Benjamin Monsalve MD Primary care physician: Benjamin Monsalve MD Time Spent in preparation of Discharge (in minutes): 32 Diagnosis - Discharge Diagnosis (1) Abnormal EKG Status: Acute (2) COPD exacerbation Status: Acute (3) Influenza Status: Acute (4) Arthritis Status: Acute (5) Hyperglycemia Status: Acute (6) Hypertension Status: Acute Hospital Course - Lab Results Lab Results: Micro Results 01/10/17 16:00 Sputum Gram Stain - Final 01/10/17 16:00 Sputum Sputum Culture - Final 01/08/17 18:00 Sputum Gram Stain - Final 01/08/17 18:00 Sputum Sputum Culture - Final Most Recent Lab Values WBC 7.8 K/uL (4.8-10.8) D 01/09/17 06:35 RBC 4.46 Mil/uL (3.80-5.20) 01/09/17 06:35 Hgb 11.0 g/dL (12.0-16.0) L 01/09/17 06:35 Hct 33.9 % (34.0-47.0) L 01/09/17 06:35 MCV 75.9 fl (81.0-99.0) L 01/09/17 06:35 MCH 24.7 pg (27.0-31.0) L 01/09/17 06:35 MCHC 32.5 g/dL (33.0-37.0) L 01/09/17 06:35 RDW 17.8 % (11.5-14.5) H 01/09/17 06:35 Plt Count 244 K/uL (130-400) 01/09/17 06:35 MPV 8.6 fl (7.2-11.7) 01/09/17 06:35 Neut % (Auto) 81.7 % (50.0-75.0) H 01/09/17 06:35 Lymph % (Auto) 12.1 % (20.0-40.0) L 01/09/17 06:35 Phelps % (Auto) 6.1 % (0.0-10.0) 01/09/17 06:35 Eos % (Auto) 0.0 % (0.0-4.0) 01/09/17 06:35 Baso % (Auto) 0.1 % (0.0-2.0) 01/09/17 06:35 Neut # 6.4 K/uL (1.8-7.0) 01/09/17 06:35 Lymph # 0.9 K/uL (1.0-4.3) L 01/09/17 06:35 Phelps # 0.5 K/uL (0.0-0.8) 01/09/17 06:35 Eos # 0.0 K/uL (0.0-0.7) 01/09/17 06:35 Baso # 0.0 K/uL (0.0-0.2) 01/09/17 06:35 Sodium 140 mmol/l (132-148) 01/09/17 06:35 Potassium 4.5 MMOL/L (3.6-5.0) 01/09/17 06:35 Chloride 108 mmol/L (98-107) H 01/09/17 06:35 Carbon Dioxide 20 mmol/L (22-30) L 01/09/17 06:35 Anion Gap 17 (10-20) 01/09/17 06:35 BUN 43 mg/dl (7-17) H 01/09/17 06:35 Creatinine 0.9 mg/dL (0.7-1.2) 01/09/17 06:35 Est GFR ( Amer) > 60 01/09/17 06:35 Est GFR (Non-Af Amer) > 60 01/09/17 06:35 POC Glucose (mg/dL) 150 mg/dL (65-110) H 01/11/17 04:45 Random Glucose 322 mg/dL (65-105) H 01/09/17 06:35 Calcium 9.5 mg/dL (8.4-10.2) 01/09/17 06:35 Total Bilirubin 0.1 mg/dl (0.2-1.3) L 01/08/17 06:25 AST 34 U/L (14-36) 01/08/17 06:25 ALT 28 U/L (9-52) 01/08/17 06:25 Alkaline Phosphatase 93 U/L (38-126) 01/08/17 06:25 Troponin I < 0.0120 ng/mL (0.00-0.120) 01/07/17 15:58 NT-Pro-B Natriuret Pep 481 pg/ml (0-900) 01/07/17 15:58 Total Protein 8.2 G/DL (6.3-8.2) 01/08/17 06:25 Albumin 3.9 g/dL (3.5-5.0) 01/08/17 06:25 Globulin 4.3 gm/dL (2.2-3.9) H 01/08/17 06:25 Albumin/Globulin Ratio 0.9 (1.0-2.1) L 01/08/17 06:25 Influenza Typ A,B (EIA) Pos for influenza b (NEGATIVE) H 01/07/17 15:58 Grp A Beta Strep Ag Negative (NEGATIVE) 01/07/17 15:58 - Hospital Course Hospital Course: COUGH LESS SOB IMPROVED NO CHEST PAINS Discharge Exam - Head Exam Head Exam: ATRAUMATIC, NORMAL INSPECTION, NORMOCEPHALIC - Eye Exam Eye Exam: EOMI, Normal appearance, PERRL Pupil Exam: NORMAL ACCOMODATION, PERRL - Respiratory Exam Respiratory Exam: Prolonged Expiratory Phase, Rales - GI/Abdominal Exam GI & Abdominal Exam: Normal Bowel Sounds - Rectal Exam Rectal Exam: NORMAL INSPECTION - Neurological Exam Neurological exam: Alert, CN II-XII Intact, Normal Gait, Oriented x3, Reflexes Normal - Psychiatric Exam Psychiatric exam: Normal Affect, Normal Mood - Skin Skin Exam: Dry, Intact, Normal Color, Warm Discharge Plan - Follow Up Plan Condition: STABLE Disposition: HOME/ ROUTINE Patient education suggested?: Yes Additional Instructions: D/C HOME TODAY FOLLOW UP WITH DR MONSALVE Referrals: Benjamin Monsalve MD [Primary Care Provider] -
== END 2017-01-12 10:40 | disposition home health service (06) | DRG 194 ==
LOC: H.ER 14:54 → H.ERHOLD 17:27 → H.TEL 01-08 01:27
PROVIDERS: ADMIT Internal Medicine Pulmonary Disease; ATTEND Internal Medicine Pulmonary Disease
PROC: 3E0F7GC Introduction of Other Therapeutic Substance into Respiratory Tract, Via Natural or Artificial Opening (ICD-10-PCS; principal; 2017-01-08)
DX: J10.1 Influenza due to other identified influenza virus with other respiratory manifestations (principal); J44.1 Chronic obstructive pulmonary disease with (acute) exacerbation; I11.9 Hypertensive heart disease without heart failure; E78.5 Hyperlipidemia, unspecified; M19.90 Unspecified osteoarthritis, unspecified site; D72.819 Decreased white blood cell count, unspecified; J45.909 Unspecified asthma, uncomplicated; K29.70 Gastritis, unspecified, without bleeding; R94.31 Abnormal electrocardiogram [ECG] [EKG]; R73.9 Hyperglycemia, unspecified; T38.0X5A Adverse effect of glucocorticoids and synthetic analogues, initial encounter; M06.9 Rheumatoid arthritis, unspecified; Y92.239 Unspecified place in hospital as the place of occurrence of the external cause

== ENCOUNTER 2019-01-19 14:32 | Inpatient (IN) | payer MEDICARE, OTHER ==
[2019-01-19 14:32] VITALS: BMI 33.4
[2019-01-19] MEDS ORDERED: Albuterol-Ipratrop 3 mg / 0.5 (3 ml) UD INH STA ×2 (15:50→18:14)
[2019-01-19] MEDS ORDERED: Albuterol-Ipratrop 3 mg / 0.5 (3 ml) UD ONE ×2 (15:59→19:48)
--- NOTE | 2019-01-19 16:10 | ED PDOC ---
HPI: SOB/CHF/COPD Time Seen by Provider: 01/19/19 15:06 Chief Complaint (Nursing): Shortness Of Breath Chief Complaint (Provider): SOB History Per: Patient, Family, Fruit Or Nut Picker (Daughter (preferred)) Additional Complaint(s): Pt reports SOB X 1 week, associated with green sputum production and nasal congestion. Has been using nebulizer at home without relief. Denies fever, CP, palpitations. Was evaluated by Dr. Patterson and advised to come to ED. Past Medical History Reviewed: Nursing Documentation, Vital Signs Vital Signs: Last Vital Signs Temp 98.6 F 01/19/19 15:00 Pulse 66 01/19/19 15:00 Resp 20 01/19/19 15:48 BP 155/65 H 01/19/19 15:00 Pulse Ox 96 01/19/19 15:00 - Medical History PMH: Asthma, Gastritis, HTN, Migraine, Rheumatoid Arthritis Denies: HIV - Surgical History Surgical History: - Family History Family History: States: Unknown Family Hx - Living Arrangements Living Arrangements: With Family - Social History Current smoker - smoking cessation education provided: No Alcohol: None - Home Medications Home Medications: Ambulatory Orders Medication Instructions Recorded Dexlansoprazole [Dexilant] 60 mg PO DAILY 01/07/17 Hydrocortisone 2.5% 1 appl TD PRN PRN 01/07/17 Meloxicam [Mobic] 15 mg PO DAILY 01/07/17 Nebivolol [Bystolic] 10 mg PO DAILY 01/07/17 amLODIPine [Norvasc] 10 mg PO DAILY 01/07/17 hydrALAZINE [Apresoline] 50 mg PO TID 01/07/17 - Allergies Allergies/Adverse Reactions: Allergies Allergy/AdvReac Type Severity Reaction Status Date / Time levofloxacin [From Levaquin] Allergy RASH Verified 01/19/19 14:59 shrimp Allergy RASH Verified 01/19/19 14:59 hair dye Allergy RASH Uncoded 01/19/19 14:59 Review of Systems Constitutional: Negative for: Fever, Chills Cardiovascular: Negative for: Chest Pain, Palpitations Respiratory: Positive for: Cough, Shortness of Breath, Sputum, Wheezing Gastrointestinal: Negative for: Abdominal Pain Skin: Negative for: Rash, Lesions Neurological: Negative for: Headache, Dizziness Physical Exam - Reviewed Nursing Documentation Reviewed: Yes Vital Signs Reviewed: Yes - Physical Exam Appears: Positive for: Well, No Acute Distress (Speaking full sentences) Head Exam: Positive for: ATRAUMATIC, NORMAL INSPECTION Skin: Positive for: Normal Color, Warm, Dry Cardiovascular/Chest: Positive for: Regular Rate, Rhythm Respiratory: Positive for: Wheezing (Bilateral). Negative for: Accessory Muscle Use, Respiratory Distress Gastrointestinal/Abdominal: Positive for: Normal Exam Extremity: Positive for: Normal ROM Neurological/Psych: Positive for: Awake, Alert, Oriented - Laboratory Results Result Diagrams: 01/19/19 16:20 01/19/19 16:20 - ECG O2 Sat by Pulse Oximetry: 96 Medical Decision Making Medical Decision Makin yo female with wheezing and cough. - labs - EKG - CXR - Albuterol/atrovent nebs - Solumedrol Accession No. 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 COMPARISON: 01/07/2017. TECHNIQUE: Chest PA and lateral views FINDINGS: LUNGS: Increased interstitial markings compatible with lower airways disease. No discrete pulmonary infiltrates. PLEURA: No significant pleural effusion identified. No pneumothorax apparent. CARDIOVASCULAR: No aortic atherosclerotic calcification present. Normal cardiac size. No pulmonary vascular congestion. OSSEOUS STRUCTURES: No significant abnormalities. VISUALIZED UPPER ABDOMEN: Normal. OTHER FINDINGS: None. IMPRESSION: Findings suggestive of bronchitis, lower airway disease. These represent new findings compared to the prior chest study Case discussed with Dr. Patterson, admit. Disposition - Clinical Impression Clinical Impression: Chr obstructive pulmonary disease w/ acute lower respiratory infxn - Disposition Disposition Time: 17:45 Condition: STABLE Forms: [employer] (Greenlandic) - Pt Status Changed To: Hospital Disposition Of: Inpatient - Admit Certification Admit to Inpatient:: After my assessment, the patient will require hospitalization for at least two midnights. This is because of the severity of symptoms shown, intensity of services needed, and/or the medical risk in this patient being treated as an outpatient. - POA Present On Arrival: None
[2019-01-19 16:42] LABS: VENOUS BLOOD GAS BASE EXCESS 2.8 mmol/L (0.0-2.0); VENOUS BLOOD GAS PCO2 47 mmHg (40-60); VENOUS BLOOD GAS PO2 25 mm/Hg (30-55); VENOUS BLOOD PH 7.39 (7.32-7.43)
[2019-01-19 16:51] LABS: ALBUMIN 4.1 g/dL (3.5-5.0); ALT/SGPT 25 U/L (9-52); AST/SGOT 35 U/L (14-36); BASO # 0.1 K/uL (0.0-0.2); BASO % 0.6 % (0.0-2.0); BLOOD UREA NITROGEN 23 mg/dl (7-17); CALCIUM 9.5 mg/dL (8.4-10.2); EOS % 0.1 % (0.0-4.0); GFR NON-AFRICAN AMERICAN > 60; HEMOGLOBIN 10.1 g/dL (12.0-16.0); LYMPH # 1.6 K/uL (1.0-4.3); LYMPH % 17.5 % (20.0-40.0); MEAN CELL VOLUME 72.9 fl (81.0-99.0); MEAN CORPUSCULAR HEMOGLOBIN 22.9 pg (27.0-31.0); MEAN CORPUSCULAR HGB CONC 31.5 g/dL (33.0-37.0); MEAN PLATELET VOLUME 8.5 fl (7.2-11.7); MONO # 0.5 K/uL (0.0-0.8); MONO % 5.9 % (0.0-10.0); NEUT # 6.9 K/uL (1.8-7.0); NEUT % 75.9 % (50.0-75.0); RBC 4.4 Mil/uL (3.80-5.20); RED CELL DISTRIBUTION WIDTH 18.8 % (11.5-14.5); WHITE BLOOD COUNT 9.1 K/uL (4.8-10.8)
[2019-01-19 16:58] LABS: INR 1.1; PROTHROMBIN TIME 12.1 Seconds (9.8-13.1)
[2019-01-19 17:00] LABS: PARTIAL THROMBOPLASTIN TIME 29.1 Seconds (25.6-37.1)
--- NOTE | 2019-01-19 17:42 | RAD ---
Date of service: 01/19/2019 HISTORY: Cough and wheezing. COMPARISON: 01/07/2017. TECHNIQUE: Chest PA and lateral views FINDINGS: LUNGS: Increased interstitial markings compatible with lower airways disease. No discrete pulmonary infiltrates. PLEURA: No significant pleural effusion identified. No pneumothorax apparent. CARDIOVASCULAR: No aortic atherosclerotic calcification present. Normal cardiac size. No pulmonary vascular congestion. OSSEOUS STRUCTURES: No significant abnormalities. VISUALIZED UPPER ABDOMEN: Normal. OTHER FINDINGS: None. IMPRESSION: Findings suggestive of bronchitis, lower airway disease. These represent new findings compared to the prior chest study
[2019-01-19] MEDS ORDERED: Azithromycin 500 MG in Sodium Chloride 0.9% 250 ML IV STA (18:12)
[2019-01-19] MEDS ORDERED: Azithromycin 500 MG IV IVPB ONE (19:47)
[2019-01-19] MEDS ORDERED: Insulin Lispro (humaLOG) 100 Units/ml Inj SC STA (23:29)
[2019-01-19] MEDS: Insulin Regular 100 units/ml SC SCH (23:54)
[2019-01-20] MEDS ORDERED: methylPREDNISolone 60 MG in Sodium Chloride 0.9% 50 ML IV SCH (01:00)
[2019-01-20] MEDS: Albuterol-Ipratrop 3 mg / 0.5 (3 ml) UD INH SCH ×4 (02:01→19:01)
[2019-01-20] MEDS: Fluticasone-Salmeterol 250-50mcg Diskus IH SCH ×2 (08:43→21:04)
[2019-01-20] MEDS: Pantoprazole 40 mg EC Tab PO SCH (08:45)
[2019-01-20] MEDS: Insulin Regular 100 units/ml SC SCH ×4 (08:47→22:10)
[2019-01-20] MEDS: Azithromycin 500 MG in Sodium Chloride 0.9% 250 ML IVPB SCH (08:53)
[2019-01-20] MEDS: Promethazine DM 12.5 mg-30 mg/10 ml Syrup PO PRN ×2 (09:00→16:53)
--- NOTE | 2019-01-20 09:03 | CP.PCM.HP ---
History of Present Illness - History of Present Illness History of Present Illness: 68 YR OLD FEMALE ADMITTED BECAUSE OF COUGH,SHORTNESS OF BREATH,CHEST TIGHTNESS AND EXERCISE INTOLERANCE X SEVERAL DAYS.SHE HAS A HX OF COPD AND HAS BEEN USING HER NEBULIZER MULTIPLE TIMES A DAY.ADMIOTS TO COUGH PRODUCTIVE OF GREEN SPUTUM AND FEVER. HX OF HYP[ERTENSION AND ARTHRITIS. Present on Admission - Present on Admission Any Indicators Present on Admission: No Past Patient History - Past Medical History & Family History Past Medical History?: Yes - Past Social History Smoking Status: Never Smoked - CARDIAC Hx Cardiac Disorders: Yes Hx Hypertension: Yes - PULMONARY Hx Respiratory Disorders: Yes Hx Asthma: Yes Hx Chronic Obstructive Pulmonary Disease (COPD): Yes - NEUROLOGICAL Hx Neurological Disorder: Yes Hx Migraine: Yes - HEENT Hx HEENT Problems: Yes - RENAL Hx Chronic Kidney Disease: No - ENDOCRINE/METABOLIC Hx Endocrine Disorders: Yes Hx Diabetes Mellitus Type 2: Yes - HEMATOLOGICAL/ONCOLOGICAL Hx Blood Disorders: No Hx Human Immunodeficiency Virus (HIV): No - INTEGUMENTARY Hx Dermatological Problems: No - MUSCULOSKELETAL/RHEUMATOLOGICAL Hx Musculoskeletal Disorders: Yes Hx Falls: No Hx Rheumatoid Arthritis: Yes - GASTROINTESTINAL Hx Gastrointestinal Disorders: Yes Hx Gastritis: Yes - GENITOURINARY/GYNECOLOGICAL Hx Genitourinary Disorders: No - PSYCHIATRIC Hx Psychophysiologic Disorder: No Hx Substance Use: No - SURGICAL HISTORY Hx Surgeries: Yes Hx Section: Yes - ANESTHESIA Hx Anesthesia: Yes Hx Anesthesia Reactions: No Hx Malignant Hyperthermia: No Has any member of the family had a problem w/ anesthesia?: No Meds Allergies/Adverse Reactions: Allergies Allergy/AdvReac Type Severity Reaction Status Date / Time levofloxacin [From Levaquin] Allergy RASH Verified 01/19/19 14:59 shrimp Allergy RASH Verified 01/19/19 14:59 hair dye Allergy RASH Uncoded 01/19/19 14:59 Physical Exam - Constitutional Appears: Well, In Acute Distress - Head Exam Head Exam: ATRAUMATIC, NORMAL INSPECTION, NORMOCEPHALIC - Eye Exam Eye Exam: EOMI, Normal appearance, PERRL Pupil Exam: NORMAL ACCOMODATION, PERRL - ENT Exam ENT Exam: Mucous Membranes Moist, Normal Exam - Neck Exam Neck exam: Positive for: Normal Inspection - Respiratory Exam Respiratory Exam: Decreased Breath Sounds, Prolonged Expiratory Phase, Rales, Wheezes, NORMAL BREATHING PATTERN - Cardiovascular Exam Cardiovascular Exam: REGULAR RHYTHM - GI/Abdominal Exam GI & Abdominal Exam: Normal Bowel Sounds, Soft. absent: Tenderness - Rectal Exam Rectal Exam: NORMAL INSPECTION - Extremities Exam Extremities exam: Positive for: normal inspection - Back Exam Back exam: NORMAL INSPECTION - Neurological Exam Neurological exam: Alert, CN II-XII Intact, Normal Gait, Oriented x3, Reflexes Normal - Psychiatric Exam Psychiatric exam: Normal Affect, Normal Mood - Skin Skin Exam: Dry, Intact, Normal Color, Warm Results - Vital Signs Recent Vital Signs: Last Vital Signs Temp 97.7 F 01/19/19 23:58 Pulse 60 01/20/19 08:47 Resp 18 01/19/19 23:58 BP 152/71 H 01/20/19 08:47 Pulse Ox 100 01/19/19 23:58 - Labs Result Diagrams: 01/19/19 16:20 01/19/19 16:20 Labs: Laboratory Results - last 24 hr 01/19/19 01/19/19 01/19/19 16:20 16:20 16:20 WBC 9.1 RBC 4.40 Hgb 10.1 L Hct 32.1 L MCV 72.9 L D MCH 22.9 L MCHC 31.5 L RDW 18.8 H Plt Count 466 H D MPV 8.5 Neut % (Auto) 75.9 H Lymph % (Auto) 17.5 L Frontier % (Auto) 5.9 Eos % (Auto) 0.1 Baso % (Auto) 0.6 Neut # (Auto) 6.9 Lymph # (Auto) 1.6 Frontier # (Auto) 0.5 Eos # (Auto) 0.0 Baso # (Auto) 0.1 PT 12.1 INR 1.1 APTT 29.1 pO2 VBG pH VBG pCO2 VBG HCO3 VBG Total CO2 VBG O2 Sat (Calc) VBG Base Excess VBG Potassium Glucose Lactate FiO2 Sodium 137 Potassium 4.3 Chloride 99 Carbon Dioxide 27 Anion Gap 15 BUN 23 H Creatinine 0.7 Est GFR ( Amer) > 60 Est GFR (Non-Af Amer) > 60 POC Glucose (mg/dL) Random Glucose 218 H Calcium 9.5 Total Bilirubin 0.4 AST 35 ALT 25 Alkaline Phosphatase 83 Total Protein 8.2 Albumin 4.1 Globulin 4.1 H Albumin/Globulin Ratio 1.0 Venous Blood Potassium 01/19/19 01/19/19 01/20/19 16:39 22:18 05:53 WBC RBC Hgb Hct MCV MCH MCHC RDW Plt Count MPV Neut % (Auto) Lymph % (Auto) Frontier % (Auto) Eos % (Auto) Baso % (Auto) Neut # (Auto) Lymph # (Auto) Frontier # (Auto) Eos # (Auto) Baso # (Auto) PT INR APTT pO2 25 L VBG pH 7.39 VBG pCO2 47 VBG HCO3 25.7 VBG Total CO2 29.9 H VBG O2 Sat (Calc) 50.8 VBG Base Excess 2.8 H VBG Potassium 4.2 Glucose 231 H Lactate 1.5 FiO2 21.0 Sodium 136.0 Potassium Chloride 102.0 Carbon Dioxide Anion Gap BUN Creatinine Est GFR ( Amer) Est GFR (Non-Af Amer) POC Glucose (mg/dL) 458 H* 310 H Random Glucose Calcium Total Bilirubin AST ALT Alkaline Phosphatase Total Protein Albumin Globulin Albumin/Globulin Ratio Venous Blood Potassium 4.2 Assessment & Plan - Assessment and Plan (Free Text) Assessment: ACUTE EXAC OF COPD URI HTN ARTHRITIS Plan: CONTINUE RX ORDERED - Date & Time Date: 01/20/19 Time: 09:04
[2019-01-20] MEDS: Enoxaparin 40 mg Syringe SC SCH (11:05)
--- NOTE | 2019-01-20 11:37 | CARD ---
APPROVED REPORT Date of service: 01/19/2019 EKG Measurement Heart [id number] <Conclusion> Normal sinus rhythm Normal ECG
--- NOTE | 2019-01-20 17:13 | PQF ---
PROVIDER RESPONSE TEXT: HISTORY OF OSTEOARTHRITIS NO EVIDENCE OF RHEUMATOID ARTHRITIS REVIEWER QUERY TEXT: Rheumatoid Arthritis Specificity Rheumatoid arthritis is documented in the Medical Record. 1) Please clarify the specific site and laterality. 2) Please also specify any associated conditions if known Such as -- Bursitis -- Felty?s syndrome -- Juvenile (Please specify type) -- Myopathy -- Nodule -- Organ involvement (Please indicate organ involved and specific disorder) -- Polyneuropathy -- With Rheumatoid Factor -- Other, please specify The patient's Clinical Indicators include: PMH: Rheumatoid arthritis Rx: Relafen Query created by: Karla Jones on 01/20/2019 9:21 AM Electronically signed by: Benjamin Patterson MD 01/20/2019 5:11 PM
[2019-01-21] MEDS: Albuterol-Ipratrop 3 mg / 0.5 (3 ml) UD INH SCH ×4 (01:00→19:03)
[2019-01-21] MEDS: Fluticasone-Salmeterol 250-50mcg Diskus IH SCH ×2 (08:40→21:05)
[2019-01-21] MEDS: Insulin Regular 100 units/ml SC SCH ×4 (08:42→21:08)
[2019-01-21] MEDS: Pantoprazole 40 mg EC Tab PO SCH (08:44)
[2019-01-21] MEDS: Enoxaparin 40 mg Syringe SC SCH (08:44)
[2019-01-21] MEDS: Azithromycin 500 MG in Sodium Chloride 0.9% 250 ML IVPB SCH (08:49)
--- NOTE | 2019-01-21 09:52 | CP.PCM.PN ---
Subjective - Date & Time of Evaluation Date of Evaluation: 01/21/19 Time of Evaluation: 09:52 - Subjective Subjective: CONTINUES TO COUGH SOB PERSISTS Objective - Vital Signs/Intake and Output Vital Signs (last 24 hours): Temp Pulse Resp BP Pulse Ox 97.6 F 66 20 135/65 100 01/21/19 08:20 01/21/19 08:44 01/21/19 08:20 01/21/19 08:44 01/21/19 08:20 - Medications Medications: Current Medications Albuterol/Ipratropium (Duoneb 3 Mg/0.5 Mg (3 Ml) Ud) 3 ml INH RQ6 [facility] Last Admin: 01/21/19 08:03 Dose: 3 ml Amlodipine Besylate (Norvasc) 10 mg PO DAILY [facility] Last Admin: 01/21/19 08:44 Dose: 10 mg Atorvastatin Calcium (Lipitor) 10 mg PO HS [facility] Last Admin: 01/20/19 21:04 Dose: 10 mg Enoxaparin Sodium (Lovenox) 40 mg SC DAILY [facility]; Protocol Last Admin: 01/21/19 08:44 Dose: 40 mg Hydralazine HCl (Apresoline) 50 mg PO BID [facility] Last Admin: 01/21/19 08:41 Dose: 50 mg Azithromycin 500 mg/ Sodium (Chloride) 250 mls @ 250 mls/hr IVPB DAILY [facility]; Protocol Last Admin: 01/21/19 08:49 Dose: 250 mls/hr Insulin Human Regular (Humulin R) 0 units SC ACHS [facility]; Protocol Last Admin: 01/21/19 08:42 Dose: 10 units Metformin HCl (Glucophage) 500 mg PO BIDWM [facility] Last Admin: 01/21/19 08:42 Dose: 500 mg Methylprednisolone (Solu-Medrol) 60 mg IV Q8 [facility] Last Admin: 01/21/19 08:47 Dose: 60 mg Metoprolol Tartrate (Lopressor) 50 mg PO BID [facility] Last Admin: 01/21/19 08:44 Dose: 50 mg Montelukast Sodium (Singulair) 10 mg PO HS [facility] Last Admin: 01/20/19 21:04 Dose: 10 mg Nabumetone (Relafen) 750 mg PO BID [facility] Last Admin: 01/20/19 16:57 Dose: 750 mg Pantoprazole Sodium (Protonix Ec Tab) 40 mg PO DAILY [facility] Last Admin: 01/21/19 08:44 Dose: 40 mg Promethazine HCl/Dextromethorphan (Phenergan Dm Syrup) 10 ml PO Q6 PRN PRN Reason: Cough Last Admin: 01/20/19 16:53 Dose: 10 ml Fluticasone/Salmeterol (Advair Diskus 250/50) 1 puff IH Q12 [facility] Last Admin: 01/21/19 08:40 Dose: 1 puff - Labs Labs: 01/19/19 16:20 01/19/19 16:20 PT 12.1 Seconds (9.8-13.1) 01/19/19 16:20 INR 1.1 01/19/19 16:20 APTT 29.1 Seconds (25.6-37.1) 01/19/19 16:20 - Constitutional Appears: No Acute Distress - Head Exam Head Exam: ATRAUMATIC, NORMAL INSPECTION, NORMOCEPHALIC - Eye Exam Eye Exam: EOMI, Normal appearance, PERRL Pupil Exam: NORMAL ACCOMODATION, PERRL - ENT Exam ENT Exam: Mucous Membranes Moist, Normal Exam - Neck Exam Neck Exam: Full ROM, Normal Inspection. absent: Lymphadenopathy - Respiratory Exam Respiratory Exam: Decreased Breath Sounds, Prolonged Expiratory Phase, Rales, Wheezes, NORMAL BREATHING PATTERN - Cardiovascular Exam Cardiovascular Exam: REGULAR RHYTHM, +S1, +S2. absent: Murmur - GI/Abdominal Exam GI & Abdominal Exam: Soft, Normal Bowel Sounds. absent: Tenderness - Rectal Exam Rectal Exam: NORMAL INSPECTION - Extremities Exam Extremities Exam: Full ROM, Normal Capillary Refill, Normal Inspection. absent: Joint Swelling, Pedal Edema - Back Exam Back Exam: NORMAL INSPECTION - Neurological Exam Neurological Exam: Alert, Awake, CN II-XII Intact, Normal Gait, Oriented x3 - Psychiatric Exam Psychiatric exam: Normal Affect, Normal Mood - Skin Skin Exam: Dry, Intact, Normal Color, Warm Assessment and Plan - Assessment and Plan (Free Text) Assessment: ACU EXAC OF COPD URI DM--UNCONTROLLED Plan: SPUTUM CULTURES CONTINUE PRESENT RX
[2019-01-21] MEDS ORDERED: Sodium Chloride 3% for Inhalation 4 ML VIAL.NEB IH PRN (09:54)
[2019-01-21] MEDS: Promethazine DM 12.5 mg-30 mg/10 ml Syrup PO SCH ×3 (11:11→21:06)
[2019-01-21] MEDS ORDERED: Insulin Regular 100 units/ml SC ONE (11:31)
[2019-01-21] MEDS: Sodium Chloride 0.45% 1,000 ML IV SCH ×2 (11:45→21:06)
[2019-01-22] MEDS: Sodium Chloride 0.45% 1,000 ML IV SCH (00:15)
[2019-01-22] MEDS: Promethazine DM 12.5 mg-30 mg/10 ml Syrup PO SCH ×4 (03:34→21:49)
[2019-01-22] MEDS: Albuterol-Ipratrop 3 mg / 0.5 (3 ml) UD INH SCH ×4 (03:37→19:00)
[2019-01-22] MEDS ORDERED: Insulin Regular 100 units/ml SC STA (06:33)
[2019-01-22] MEDS ORDERED: Pneumococcal 23-Valent Vaccine IM ONE (07:09)
[2019-01-22 08:00] LABS: HEMOGLOBIN 9.9 g/dL (12.0-16.0); MEAN CORPUSCULAR HEMOGLOBIN 22.9 pg (27.0-31.0); MEAN CORPUSCULAR HGB CONC 30.9 g/dL (33.0-37.0); RBC 4.32 Mil/uL (3.80-5.20); RED CELL DISTRIBUTION WIDTH 19.6 % (11.5-14.5)
[2019-01-22 08:03] LABS: ALB/GLOB RATIO 1.1 (1.0-2.1); ALT/SGPT 17 U/L (9-52); AST/SGOT 26 U/L (14-36); BLOOD UREA NITROGEN 30 mg/dl (7-17); CALCIUM 9.3 mg/dL (8.4-10.2); GFR NON-AFRICAN AMERICAN > 60
[2019-01-22] MEDS: Fluticasone-Salmeterol 250-50mcg Diskus IH SCH ×2 (08:46→21:46)
[2019-01-22] MEDS: Insulin Regular 100 units/ml SC SCH ×4 (08:48→21:48)
[2019-01-22] MEDS: Enoxaparin 40 mg Syringe SC SCH (08:49)
[2019-01-22] MEDS: Pantoprazole 40 mg EC Tab PO SCH (08:52)
[2019-01-22] MEDS: Azithromycin 500 MG in Sodium Chloride 0.9% 250 ML IVPB SCH (08:56)
--- NOTE | 2019-01-22 09:00 | CP.PCM.PN ---
Subjective - Date & Time of Evaluation Date of Evaluation: 01/22/19 Time of Evaluation: 09:00 - Subjective Subjective: COUGH AND SOB IMPROVING REFUSES TO GO TO TRANSITIONAL CARE OR SUBACUTE CARE SERUM GLU POORLY CONTROLLED Objective - Vital Signs/Intake and Output Vital Signs (last 24 hours): Temp Pulse Resp BP Pulse Ox 98.3 F 69 20 146/69 97 01/22/19 07:50 01/22/19 07:50 01/22/19 07:50 01/22/19 07:50 01/22/19 07:50 - Medications Medications: Current Medications Albuterol/Ipratropium (Duoneb 3 Mg/0.5 Mg (3 Ml) Ud) 3 ml INH RQ6 [facility] Last Admin: 01/22/19 07:47 Dose: 3 ml Amlodipine Besylate (Norvasc) 10 mg PO DAILY [facility] Last Admin: 01/21/19 08:44 Dose: 10 mg Atorvastatin Calcium (Lipitor) 10 mg PO HS [facility] Last Admin: 01/21/19 21:05 Dose: 10 mg Enoxaparin Sodium (Lovenox) 40 mg SC DAILY [facility]; Protocol Last Admin: 01/21/19 08:44 Dose: 40 mg Hydralazine HCl (Apresoline) 50 mg PO BID [facility] Last Admin: 01/21/19 16:12 Dose: 50 mg Azithromycin 500 mg/ Sodium (Chloride) 250 mls @ 250 mls/hr IVPB DAILY [facility]; Protocol Last Admin: 01/21/19 08:49 Dose: 250 mls/hr Sodium Chloride (Sodium Chloride 0.45%) 1,000 mls @ 80 mls/hr IV .[id number] [facility] Stop: 01/22/19 11:32 Last Admin: 01/22/19 00:15 Dose: Not Given Insulin Human Regular (Humulin R) 0 units SC ACHS [facility]; Protocol Last Admin: 01/21/19 21:08 Dose: Not Given Metformin HCl (Glucophage) 500 mg PO BIDWM [facility] Last Admin: 01/21/19 16:13 Dose: 500 mg Methylprednisolone (Solu-Medrol) 60 mg IV Q8 [facility] Last Admin: 01/22/19 01:01 Dose: 60 mg Metoprolol Tartrate (Lopressor) 50 mg PO BID [facility] Last Admin: 01/21/19 16:14 Dose: 50 mg Montelukast Sodium (Singulair) 10 mg PO HS [facility] Last Admin: 01/21/19 21:05 Dose: 10 mg Nabumetone (Relafen) 750 mg PO BID [facility] Last Admin: 01/21/19 16:15 Dose: 750 mg Pantoprazole Sodium (Protonix Ec Tab) 40 mg PO DAILY [facility] Last Admin: 01/21/19 08:44 Dose: 40 mg Promethazine HCl/Dextromethorphan (Phenergan Dm Syrup) 10 ml PO Q6 [facility] Last Admin: 01/22/19 03:34 Dose: 10 ml Fluticasone/Salmeterol (Advair Diskus 250/50) 1 puff IH Q12 [facility] Last Admin: 01/21/19 21:05 Dose: 1 puff - Labs Labs: 01/22/19 06:34 01/22/19 06:34 PT 12.1 Seconds (9.8-13.1) 01/19/19 16:20 INR 1.1 01/19/19 16:20 APTT 29.1 Seconds (25.6-37.1) 01/19/19 16:20 - Constitutional Appears: No Acute Distress - Head Exam Head Exam: ATRAUMATIC, NORMAL INSPECTION, NORMOCEPHALIC - Eye Exam Eye Exam: EOMI, Normal appearance, PERRL Pupil Exam: NORMAL ACCOMODATION, PERRL - ENT Exam ENT Exam: Mucous Membranes Moist, Normal Exam - Neck Exam Neck Exam: Full ROM, Normal Inspection. absent: Lymphadenopathy - Respiratory Exam Respiratory Exam: Prolonged Expiratory Phase, Wheezes, NORMAL BREATHING PATTERN - Cardiovascular Exam Cardiovascular Exam: REGULAR RHYTHM, +S1, +S2. absent: Murmur - GI/Abdominal Exam GI & Abdominal Exam: Soft, Normal Bowel Sounds. absent: Tenderness - Rectal Exam Rectal Exam: NORMAL INSPECTION - Extremities Exam Extremities Exam: Full ROM, Normal Capillary Refill, Normal Inspection. absent: Joint Swelling, Pedal Edema - Back Exam Back Exam: NORMAL INSPECTION - Neurological Exam Neurological Exam: Alert, Awake, CN II-XII Intact, Normal Gait, Oriented x3 - Psychiatric Exam Psychiatric exam: Normal Affect, Normal Mood - Skin Skin Exam: Dry, Intact, Normal Color, Warm Assessment and Plan - Assessment and Plan (Free Text) Assessment: ACUTE EXAC OF COPD URI HTN DM TYPE 2 WITH HYPERGLYCEMIA Plan: TAPER STEROIDS MONITOR S.GLU
[2019-01-22] MEDS ORDERED: methylPREDNISolone 40 MG in Sodium Chloride 0.9% 50 ML IVPB SCH (09:15)
[2019-01-22] MEDS: MethylPREDNISolone 40 mg Vial IVP SCH (12:03)
[2019-01-23] MEDS: Albuterol-Ipratrop 3 mg / 0.5 (3 ml) UD INH SCH ×3 (01:43→13:47)
[2019-01-23] MEDS: Promethazine DM 12.5 mg-30 mg/10 ml Syrup PO SCH ×3 (04:14→17:02)
[2019-01-23] MEDS: Insulin Regular 100 units/ml SC SCH ×3 (08:14→17:03)
--- NOTE | 2019-01-23 10:01 | CP.PCM.DIS ---
Provider - Provider Date of Admission: 01/19/19 17:45 Attending physician: Benjamin Patterson MD Time Spent in preparation of Discharge (in minutes): 35 Diagnosis - Discharge Diagnosis (1) Diabetes 1.5, managed as type 2 Status: Chronic Comment: WILL CONTINUE ACUCHECKS WITH REGULAR INSULIN COVERAGE (2) Chr obstructive pulmonary disease w/ acute lower respiratory infxn Status: Acute Comment: ON IV STEROIDS AND ANTIBIOTICS. WILL CONTINUE O2 THERAPY AND BRONCHODILATORS (3) Arthritis Status: Acute (4) COPD exacerbation Status: Acute (5) Hyperglycemia Status: Acute (6) Hypertension Status: Acute Hospital Course - Lab Results Lab Results: Micro Results 01/19/19 16:20 Blood-Venous Blood Culture - Preliminary NO GROWTH AFTER 3 DAYS 01/19/19 16:00 Blood-Venous Blood Culture - Preliminary NO GROWTH AFTER 3 DAYS Most Recent Lab Values WBC 16.0 K/uL (4.8-10.8) H D 01/22/19 06:34 RBC 4.32 Mil/uL (3.80-5.20) 01/22/19 06:34 Hgb 9.9 g/dL (12.0-16.0) L 01/22/19 06:34 Hct 32.0 % (34.0-47.0) L 01/22/19 06:34 MCV 74.0 fl (81.0-99.0) L 01/22/19 06:34 MCH 22.9 pg (27.0-31.0) L 01/22/19 06:34 MCHC 30.9 g/dL (33.0-37.0) L 01/22/19 06:34 RDW 19.6 % (11.5-14.5) H 01/22/19 06:34 Plt Count 459 K/uL (130-400) H 01/22/19 06:34 MPV 8.5 fl (7.2-11.7) 01/19/19 16:20 Neut % (Auto) 75.9 % (50.0-75.0) H 01/19/19 16:20 Lymph % (Auto) 17.5 % (20.0-40.0) L 01/19/19 16:20 Clark % (Auto) 5.9 % (0.0-10.0) 01/19/19 16:20 Eos % (Auto) 0.1 % (0.0-4.0) 01/19/19 16:20 Baso % (Auto) 0.6 % (0.0-2.0) 01/19/19 16:20 Neut # (Auto) 6.9 K/uL (1.8-7.0) 01/19/19 16:20 Lymph # (Auto) 1.6 K/uL (1.0-4.3) 01/19/19 16:20 Clark # (Auto) 0.5 K/uL (0.0-0.8) 01/19/19 16:20 Eos # (Auto) 0.0 K/uL (0.0-0.7) 01/19/19 16:20 Baso # (Auto) 0.1 K/uL (0.0-0.2) 01/19/19 16:20 PT 12.1 Seconds (9.8-13.1) 01/19/19 16:20 INR 1.1 01/19/19 16:20 APTT 29.1 Seconds (25.6-37.1) 01/19/19 16:20 pO2 25 mm/Hg (30-55) L 01/19/19 16:39 VBG pH 7.39 (7.32-7.43) 01/19/19 16:39 VBG pCO2 47 mmHg (40-60) 01/19/19 16:39 VBG HCO3 25.7 mmol/L 01/19/19 16:39 VBG Total CO2 29.9 mmol/L (22-28) H 01/19/19 16:39 VBG O2 Sat (Calc) 50.8 % (40-65) 01/19/19 16:39 VBG Base Excess 2.8 mmol/L (0.0-2.0) H 01/19/19 16:39 VBG Potassium 4.2 mmol/L (3.6-5.2) 01/19/19 16:39 Sodium 136.0 mmol/L (132-148) 01/19/19 16:39 Chloride 102.0 mmol/L (98-107) 01/19/19 16:39 Glucose 231 mg/dL (65-105) H 01/19/19 16:39 Lactate 1.5 mmol/L (0.7-2.1) 01/19/19 16:39 FiO2 21.0 % 01/19/19 16:39 Sodium 135 mmol/l (132-148) 01/22/19 06:34 Potassium 3.6 MMOL/L (3.6-5.0) 01/22/19 06:34 Chloride 96 mmol/L (98-107) L 01/22/19 06:34 Carbon Dioxide 22 mmol/L (22-30) 01/22/19 06:34 Anion Gap 21 (10-20) H 01/22/19 06:34 BUN 30 mg/dl (7-17) H 01/22/19 06:34 Creatinine 0.8 mg/dl (0.7-1.2) 01/22/19 06:34 Est GFR ( Amer) > 60 01/22/19 06:34 Est GFR (Non-Af Amer) > 60 01/22/19 06:34 POC Glucose (mg/dL) 235 mg/dL (65-110) H 01/23/19 05:16 Random Glucose 413 mg/dL (65-105) H* D 01/22/19 06:34 Calcium 9.3 mg/dL (8.4-10.2) 01/22/19 06:34 Total Bilirubin 0.3 mg/dl (0.2-1.3) 01/22/19 06:34 AST 26 U/L (14-36) 01/22/19 06:34 ALT 17 U/L (9-52) 01/22/19 06:34 Alkaline Phosphatase 87 U/L (38-126) 01/22/19 06:34 Total Protein 7.6 G/DL (6.3-8.2) 01/22/19 06:34 Albumin 4.0 g/dL (3.5-5.0) 01/22/19 06:34 Globulin 3.6 gm/dL (2.2-3.9) 01/22/19 06:34 Albumin/Globulin Ratio 1.1 (1.0-2.1) 01/22/19 06:34 Venous Blood Potassium 4.2 mmol/L (3.6-5.2) 01/19/19 16:39 - Hospital Course Hospital Course: STILL COUGHING AND SHORT OF BREATH ON MILD EXERTION AGREES TO GO TO TRANSITIONAL CARE Discharge Exam - Head Exam Head Exam: ATRAUMATIC, NORMAL INSPECTION, NORMOCEPHALIC - Eye Exam Eye Exam: EOMI, Normal appearance, PERRL Pupil Exam: NORMAL ACCOMODATION, PERRL - Respiratory Exam Respiratory Exam: Decreased Breath Sounds, Rales, NORMAL BREATHING PATTERN - GI/Abdominal Exam GI & Abdominal Exam: Normal Bowel Sounds - Rectal Exam Rectal Exam: NORMAL INSPECTION - Neurological Exam Neurological exam: Alert, CN II-XII Intact, Normal Gait, Oriented x3, Reflexes Normal - Psychiatric Exam Psychiatric exam: Normal Affect, Normal Mood - Skin Skin Exam: Dry, Intact, Normal Color, Warm Discharge Plan - Follow Up Plan Condition: STABLE Disposition: HOME/ ROUTINE Additional Instructions: TRANSFER TO TRANSITIONAL CARE ON IV ANTIBIOTICS AND STEROIDS
[2019-01-23] MEDS: Enoxaparin 40 mg Syringe SC SCH (10:07)
[2019-01-23] MEDS: Pantoprazole 40 mg EC Tab PO SCH (10:09)
[2019-01-23] MEDS: Fluticasone-Salmeterol 250-50mcg Diskus IH SCH (10:11)
[2019-01-23] MEDS: Azithromycin 500 MG in Sodium Chloride 0.9% 250 ML IVPB SCH (10:12)
[2019-01-23] MEDS: MethylPREDNISolone 40 mg Vial IVP SCH (10:14)
[2019-01-23 16:41] VITALS: BP 136/72; PULSE 73; RESP 18; TEMP 98.1; O2SAT 99
== END 2019-01-23 17:25 | DRG 192 ==
LOC: H.ER 14:32 → H.ERHOLD 17:45 → H.MEDSURG1 21:08
PROVIDERS: ADMIT Internal Medicine Pulmonary Disease; ATTEND Internal Medicine Pulmonary Disease
PROC: 3E0F7GC Introduction of Other Therapeutic Substance into Respiratory Tract, Via Natural or Artificial Opening (ICD-10-PCS; principal; 2019-01-20)
DX: J44.1 Chronic obstructive pulmonary disease with (acute) exacerbation (principal); J06.9 Acute upper respiratory infection, unspecified; E11.65 Type 2 diabetes mellitus with hyperglycemia; I10 Essential (primary) hypertension; M19.90 Unspecified osteoarthritis, unspecified site; Z79.1 Long term (current) use of non-steroidal anti-inflammatories (NSAID); G43.909 Migraine, unspecified, not intractable, without status migrainosus; K29.70 Gastritis, unspecified, without bleeding; Z79.899 Other long term (current) drug therapy

== ENCOUNTER 2019-01-23 15:23 | Inpatient (IN) | payer OTHER ==
[2019-01-23 17:41] VITALS: BMI 25.9
[2019-01-23] MEDS: Albuterol-Ipratrop 3 mg / 0.5 (3 ml) UD INH SCH (19:51)
[2019-01-23] MEDS: Fluticasone-Salmeterol 250-50mcg Diskus IH SCH (21:46)
[2019-01-23] MEDS: Promethazine DM 12.5 mg-30 mg/10 ml Syrup PO SCH (21:47)
[2019-01-24] MEDS: Albuterol-Ipratrop 3 mg / 0.5 (3 ml) UD INH SCH ×4 (02:07→19:10)
[2019-01-24] MEDS: Promethazine DM 12.5 mg-30 mg/10 ml Syrup PO SCH ×4 (04:54→21:18)
[2019-01-24] MEDS: Insulin Regular 100 units/ml SC SCH ×4 (07:40→21:29)
[2019-01-24] MEDS: Fluticasone-Salmeterol 250-50mcg Diskus IH SCH ×2 (09:36→20:45)
[2019-01-24] MEDS: MethylPREDNISolone 40 mg Vial IV SCH (09:37)
[2019-01-24] MEDS: Pantoprazole 40 mg EC Tab PO SCH (09:38)
[2019-01-24] MEDS: Azithromycin 500 MG in Sodium Chloride 0.9% 250 ML IVPB SCH (09:42)
--- NOTE | 2019-01-24 09:45 | CP.PCM.HP ---
History of Present Illness - History of Present Illness History of Present Illness: 68 YR OLD FEMALE ADMITTED TO THE MEDICAL FLOOR THEN TRANSFERRED TO TRANSITIONAL CARE FOR CONTINUED TREATMENT OF ACUTE EXACERBATION OF CHRONIC OBSTRUCTIVE PULMONARY DISEASE AND UPPER RESPIRATORY [id number] CONTINUES TO HAVE COUGH,SHORTNESS OF BREATH AND EXERCISE INTOLERANCE. HX OF COPD,ARTHRITIS,ANXIETY WITH DEPRESSION AND HYPERTENSION WITH DIABETES. Present on Admission - Present on Admission Any Indicators Present on Admission: No Past Patient History - Past Medical History & Family History Past Medical History?: Yes - Past Social History Smoking Status: Never Smoked - CARDIAC Hx Cardiac Disorders: Yes Hx Hypertension: Yes - PULMONARY Hx Respiratory Disorders: Yes Hx Asthma: Yes Hx Chronic Obstructive Pulmonary Disease (COPD): Yes - NEUROLOGICAL Hx Neurological Disorder: Yes Hx Migraine: Yes - HEENT Hx HEENT Problems: Yes - RENAL Hx Chronic Kidney Disease: No - ENDOCRINE/METABOLIC Hx Endocrine Disorders: Yes Hx Diabetes Mellitus Type 2: Yes - HEMATOLOGICAL/ONCOLOGICAL Hx Blood Disorders: No Hx AIDS: No Hx Human Immunodeficiency Virus (HIV): No - INTEGUMENTARY Hx Dermatological Problems: No - MUSCULOSKELETAL/RHEUMATOLOGICAL Hx Musculoskeletal Disorders: Yes Hx Falls: No Hx Rheumatoid Arthritis: Yes - GASTROINTESTINAL Hx Gastrointestinal Disorders: Yes Hx Gastritis: Yes - GENITOURINARY/GYNECOLOGICAL Hx Genitourinary Disorders: No - PSYCHIATRIC Hx Psychophysiologic Disorder: No Hx Substance Use: No - SURGICAL HISTORY Hx Surgeries: Yes Hx Section: Yes - ANESTHESIA Hx Anesthesia: Yes Hx Anesthesia Reactions: No Hx Malignant Hyperthermia: No Meds Allergies/Adverse Reactions: Allergies Allergy/AdvReac Type Severity Reaction Status Date / Time levofloxacin [From Levaquin] Allergy RASH Verified 01/23/19 17:37 shrimp Allergy RASH Verified 01/23/19 17:37 hair dye Allergy RASH Uncoded 01/23/19 17:37 Physical Exam - Constitutional Appears: Chronically Ill - Head Exam Head Exam: ATRAUMATIC, NORMAL INSPECTION, NORMOCEPHALIC - Eye Exam Eye Exam: EOMI, Normal appearance, PERRL Pupil Exam: NORMAL ACCOMODATION, PERRL - ENT Exam ENT Exam: Mucous Membranes Moist, Normal Exam - Neck Exam Neck exam: Positive for: Normal Inspection - Respiratory Exam Respiratory Exam: Decreased Breath Sounds, Prolonged Expiratory Phase, Rales, Wheezes, NORMAL BREATHING PATTERN - Cardiovascular Exam Cardiovascular Exam: REGULAR RHYTHM - GI/Abdominal Exam GI & Abdominal Exam: Normal Bowel Sounds, Soft. absent: Tenderness - Rectal Exam Rectal Exam: NORMAL INSPECTION - Extremities Exam Extremities exam: Positive for: normal inspection - Back Exam Back exam: NORMAL INSPECTION - Neurological Exam Neurological exam: Alert, CN II-XII Intact, Normal Gait, Oriented x3, Reflexes Normal - Psychiatric Exam Psychiatric exam: Normal Affect, Normal Mood - Skin Skin Exam: Dry, Intact, Normal Color, Warm Results - Vital Signs Recent Vital Signs: Last Vital Signs Temp 97.9 F 01/23/19 21:17 Pulse 69 01/23/19 21:17 Resp 20 01/23/19 21:17 BP 153/77 H 01/23/19 21:17 Pulse Ox 97 01/23/19 21:17 - Labs Labs: Laboratory Results - last 24 hr 01/23/19 01/24/19 21:05 05:44 POC Glucose (mg/dL) 289 H 197 H Assessment & Plan - Assessment and Plan (Free Text) Assessment: ACUTE EXACERBATION OF COPD ACUTE BRONCHITIS HTN DM--UNCONTROLLED ANXIETY WITH DEPRESSION OSTEOARTHRITIS Plan: CONTINUE RX ORDERED PT/OT - Date & Time Date: 01/24/19 Time: 09:46
[2019-01-24] MEDS ORDERED: Sodium Chloride 3% for Inhalation 4 ML VIAL.NEB IH PRN (10:03)
[2019-01-24] MEDS: Enoxaparin 40 mg Syringe SC SCH (12:22)
[2019-01-24] MEDS ORDERED: Insulin NPH Human 100 Units/ml Inj SC STA (18:15)
[2019-01-24] MEDS ORDERED: Insulin Regular 100 units/ml SC STA (18:21)
[2019-01-25] MEDS: Albuterol-Ipratrop 3 mg / 0.5 (3 ml) UD INH SCH ×4 (02:57→19:12)
[2019-01-25] MEDS: Promethazine DM 12.5 mg-30 mg/10 ml Syrup PO SCH ×4 (03:04→21:24)
[2019-01-25 05:59] LABS: HEMOGLOBIN 10.5 g/dL (12.0-16.0); MEAN CELL VOLUME 72.4 fl (81.0-99.0); MEAN CORPUSCULAR HEMOGLOBIN 22.6 pg (27.0-31.0); MEAN CORPUSCULAR HGB CONC 31.1 g/dL (33.0-37.0); RBC 4.67 Mil/uL (3.80-5.20); RED CELL DISTRIBUTION WIDTH 18.9 % (11.5-14.5); WHITE BLOOD COUNT 16.8 K/uL (4.8-10.8)
[2019-01-25] MEDS: Insulin Regular 100 units/ml SC SCH ×4 (07:41→21:24)
[2019-01-25] MEDS: Fluticasone-Salmeterol 250-50mcg Diskus IH SCH ×2 (08:44→21:23)
[2019-01-25] MEDS: Pantoprazole 40 mg EC Tab PO SCH (08:48)
[2019-01-25] MEDS: Enoxaparin 40 mg Syringe SC SCH (08:48)
[2019-01-25] MEDS: Azithromycin 500 MG in Sodium Chloride 0.9% 250 ML IVPB SCH (08:49)
[2019-01-25] MEDS: MethylPREDNISolone 40 mg Vial IV SCH (08:49)
--- NOTE | 2019-01-25 10:50 | CP.PCM.PN ---
Subjective - Date & Time of Evaluation Date of Evaluation: 01/25/19 Time of Evaluation: 10:50 - Subjective Subjective: SOB AND COUGH LESS NO CHEST PAINS Objective - Vital Signs/Intake and Output Vital Signs (last 24 hours): Temp Pulse Resp BP Pulse Ox 98.2 F 75 20 136/77 99 01/25/19 08:23 01/25/19 09:01 01/25/19 08:23 01/25/19 09:01 01/25/19 08:23 - Medications Medications: Current Medications Albuterol/Ipratropium (Duoneb 3 Mg/0.5 Mg (3 Ml) Ud) 3 ml INH RQ6 [facility] Last Admin: 01/25/19 07:05 Dose: 3 ml Amlodipine Besylate (Norvasc) 10 mg PO DAILY [facility] Last Admin: 01/25/19 09:01 Dose: 10 mg Atorvastatin Calcium (Lipitor) 10 mg PO HS [facility] Last Admin: 01/24/19 21:18 Dose: 10 mg Enoxaparin Sodium (Lovenox) 40 mg SC DAILY [facility]; Protocol Last Admin: 01/25/19 08:48 Dose: 40 mg Hydralazine HCl (Apresoline) 50 mg PO TID [facility] Last Admin: 01/25/19 08:46 Dose: 50 mg Azithromycin 500 mg/ Sodium (Chloride) 250 mls @ 250 mls/hr IVPB DAILY [facility] Last Admin: 01/25/19 08:49 Dose: 250 mls/hr Insulin Human Regular (Humulin R) 0 units SC ACHS [facility]; Protocol Last Admin: 01/25/19 07:41 Dose: 2 unit Metformin HCl (Glucophage) 1,000 mg PO BIDWM [facility] Last Admin: 01/25/19 08:47 Dose: 1,000 mg Metoprolol Tartrate (Lopressor) 50 mg PO BID@0900,2100 [facility] Last Admin: 01/25/19 08:47 Dose: 50 mg Montelukast Sodium (Singulair) 10 mg PO HS [facility] Last Admin: 01/24/19 21:18 Dose: 10 mg Nabumetone (Relafen) 750 mg PO BID [facility] Last Admin: 01/25/19 09:00 Dose: 750 mg Pantoprazole Sodium (Protonix Ec Tab) 40 mg PO DAILY [facility] Last Admin: 01/25/19 08:48 Dose: 40 mg Promethazine HCl/Dextromethorphan (Phenergan Dm Syrup) 10 ml PO Q6 [facility] Last Admin: 01/25/19 09:00 Dose: 10 ml Fluticasone/Salmeterol (Advair Diskus 250/50) 1 puff IH Q12 [facility] Last Admin: 01/25/19 08:44 Dose: 1 puff - Labs Labs: 01/25/19 05:30 - Constitutional Appears: No Acute Distress - Head Exam Head Exam: ATRAUMATIC, NORMAL INSPECTION, NORMOCEPHALIC - Eye Exam Eye Exam: EOMI, Normal appearance, PERRL Pupil Exam: NORMAL ACCOMODATION, PERRL - ENT Exam ENT Exam: Mucous Membranes Moist, Normal Exam - Neck Exam Neck Exam: Full ROM, Normal Inspection. absent: Lymphadenopathy - Respiratory Exam Respiratory Exam: Decreased Breath Sounds, Prolonged Expiratory Phase, NORMAL BREATHING PATTERN - Cardiovascular Exam Cardiovascular Exam: REGULAR RHYTHM, +S1, +S2. absent: Murmur - GI/Abdominal Exam GI & Abdominal Exam: Soft, Normal Bowel Sounds. absent: Tenderness - Rectal Exam Rectal Exam: NORMAL INSPECTION - Extremities Exam Extremities Exam: Full ROM, Normal Capillary Refill, Normal Inspection. absent: Joint Swelling, Pedal Edema - Back Exam Back Exam: NORMAL INSPECTION - Neurological Exam Neurological Exam: Alert, Awake, CN II-XII Intact, Normal Gait, Oriented x3 - Psychiatric Exam Psychiatric exam: Normal Affect, Normal Mood - Skin Skin Exam: Dry, Intact, Normal Color, Warm Assessment and Plan - Assessment and Plan (Free Text) Assessment: ACUTE EXAC OF COPD URI UNCONTROLLED TYPE 2 DIABETES LEUKOCYTOSIS PROBABLY DUE TO STEROIDS HTN ANXIETY Plan: TAPER STEROIDS INCREASE DOSE OF METFORMIN PT/OT
[2019-01-26] MEDS: Albuterol-Ipratrop 3 mg / 0.5 (3 ml) UD INH SCH ×4 (01:00→19:12)
[2019-01-26] MEDS: Promethazine DM 12.5 mg-30 mg/10 ml Syrup PO SCH ×3 (04:39→21:13)
[2019-01-26 06:15] LABS: BASO # 0.1 K/uL (0.0-0.2); BASO % 0.5 % (0.0-2.0); EOS # 0.1 K/uL (0.0-0.7); EOS % 0.5 % (0.0-4.0); HEMOGLOBIN 10.4 g/dL (12.0-16.0); LYMPH # 3.3 K/uL (1.0-4.3); LYMPH % 18.5 % (20.0-40.0); MEAN CELL VOLUME 71.6 fl (81.0-99.0); MEAN CORPUSCULAR HEMOGLOBIN 22.8 pg (27.0-31.0); MEAN CORPUSCULAR HGB CONC 31.9 g/dL (33.0-37.0); MEAN PLATELET VOLUME 8.2 fl (7.2-11.7); MONO # 1.4 K/uL (0.0-0.8); MONO % 7.9 % (0.0-10.0); NEUT # 12.7 K/uL (1.8-7.0); NEUT % 72.6 % (50.0-75.0); NRBC % 0.1 % (0.0-0.0); RBC 4.54 Mil/uL (3.80-5.20); WHITE BLOOD COUNT 17.6 K/uL (4.8-10.8)
[2019-01-26 06:30] LABS: BLOOD UREA NITROGEN 28 mg/dl (7-17); CALCIUM 8.9 mg/dL (8.4-10.2); GFR NON-AFRICAN AMERICAN > 60
[2019-01-26] MEDS: Insulin Regular 100 units/ml SC SCH ×4 (06:56→21:12)
[2019-01-26] MEDS: Azithromycin 500 MG in Sodium Chloride 0.9% 250 ML IVPB SCH (08:12)
[2019-01-26] MEDS: Fluticasone-Salmeterol 250-50mcg Diskus IH SCH ×2 (08:14→21:12)
[2019-01-26] MEDS: Enoxaparin 40 mg Syringe SC SCH (08:14)
[2019-01-26] MEDS: Pantoprazole 40 mg EC Tab PO SCH (08:17)
--- NOTE | 2019-01-26 09:38 | CP.PCM.PN ---
Subjective - Date & Time of Evaluation Date of Evaluation: 01/26/19 Time of Evaluation: 09:40 - Subjective Subjective: SOB IMPROVED COUGH LESS Objective - Vital Signs/Intake and Output Vital Signs (last 24 hours): Temp Pulse Resp BP Pulse Ox 97.9 F 60 20 137/77 97 01/26/19 08:20 01/26/19 09:34 01/26/19 08:20 01/26/19 09:34 01/26/19 08:20 - Medications Medications: Current Medications Albuterol/Ipratropium (Duoneb 3 Mg/0.5 Mg (3 Ml) Ud) 3 ml INH RQ6 [facility] Last Admin: 01/26/19 07:27 Dose: 3 ml Amlodipine Besylate (Norvasc) 10 mg PO DAILY [facility] Last Admin: 01/26/19 09:34 Dose: 10 mg Atorvastatin Calcium (Lipitor) 10 mg PO HS [facility] Last Admin: 01/25/19 21:23 Dose: 10 mg Enoxaparin Sodium (Lovenox) 40 mg SC DAILY [facility]; Protocol Last Admin: 01/26/19 08:14 Dose: 40 mg Hydralazine HCl (Apresoline) 50 mg PO TID [facility] Last Admin: 01/26/19 08:16 Dose: 50 mg Azithromycin 500 mg/ Sodium (Chloride) 250 mls @ 250 mls/hr IVPB DAILY [facility] Last Admin: 01/26/19 08:12 Dose: 250 mls/hr Insulin Human Regular (Humulin R) 0 units SC ACHS [facility]; Protocol Last Admin: 01/26/19 06:56 Dose: 2 unit Metformin HCl (Glucophage) 1,000 mg PO BIDWM [facility] Last Admin: 01/26/19 08:15 Dose: 1,000 mg Metoprolol Tartrate (Lopressor) 50 mg PO BID@0900,2100 [facility] Last Admin: 01/26/19 08:15 Dose: 50 mg Montelukast Sodium (Singulair) 10 mg PO HS [facility] Last Admin: 01/25/19 21:26 Dose: 10 mg Nabumetone (Relafen) 750 mg PO BID [facility] Last Admin: 01/26/19 08:16 Dose: 750 mg Pantoprazole Sodium (Protonix Ec Tab) 40 mg PO DAILY [facility] Last Admin: 01/26/19 08:17 Dose: 40 mg Prednisone (Prednisone Tab) 10 mg PO DAILY [facility] Last Admin: 01/26/19 08:15 Dose: 10 mg Promethazine HCl/Dextromethorphan (Phenergan Dm Syrup) 10 ml PO Q6 [facility] Last Admin: 01/26/19 09:34 Dose: 10 ml Fluticasone/Salmeterol (Advair Diskus 250/50) 1 puff IH Q12 [facility] Last Admin: 01/26/19 08:14 Dose: 1 puff - Labs Labs: 01/26/19 05:55 01/26/19 05:55 - Constitutional Appears: No Acute Distress - Head Exam Head Exam: ATRAUMATIC, NORMAL INSPECTION, NORMOCEPHALIC - Eye Exam Eye Exam: EOMI, Normal appearance, PERRL Pupil Exam: NORMAL ACCOMODATION, PERRL - ENT Exam ENT Exam: Mucous Membranes Moist, Normal Exam - Neck Exam Neck Exam: Full ROM, Normal Inspection. absent: Lymphadenopathy - Respiratory Exam Respiratory Exam: Prolonged Expiratory Phase, NORMAL BREATHING PATTERN - Cardiovascular Exam Cardiovascular Exam: REGULAR RHYTHM, +S1, +S2. absent: Murmur - GI/Abdominal Exam GI & Abdominal Exam: Soft, Normal Bowel Sounds. absent: Tenderness - Rectal Exam Rectal Exam: NORMAL INSPECTION - Extremities Exam Extremities Exam: Full ROM, Normal Capillary Refill, Normal Inspection. absent: Joint Swelling, Pedal Edema - Back Exam Back Exam: NORMAL INSPECTION - Neurological Exam Neurological Exam: Alert, Awake, CN II-XII Intact, Normal Gait, Oriented x3 - Psychiatric Exam Psychiatric exam: Normal Affect, Normal Mood - Skin Skin Exam: Dry, Intact, Normal Color, Warm Assessment and Plan - Assessment and Plan (Free Text) Assessment: ACUTE EXAC OF COPD--IMPROVING URI LEUKOCYTOSIS--PROBABLY DUE TO URI AND STEROIDS DM VAGINAL AND RECTAL PRURITIS Plan: D/C STEROIDS REPEAT CBC IN AM MONITOR ACCUCHECKS
[2019-01-26] MEDS: Mycolog II OINT TOP SCH (13:49)
[2019-01-27] MEDS: Albuterol-Ipratrop 3 mg / 0.5 (3 ml) UD INH SCH ×4 (01:08→19:21)
[2019-01-27] MEDS: Promethazine DM 12.5 mg-30 mg/10 ml Syrup PO SCH ×4 (04:37→21:06)
[2019-01-27] MEDS: Insulin Regular 100 units/ml SC SCH ×4 (06:38→22:07)
[2019-01-27 06:40] LABS: MEAN CELL VOLUME 72.4 fl (81.0-99.0); MEAN CORPUSCULAR HEMOGLOBIN 22.6 pg (27.0-31.0); MEAN CORPUSCULAR HGB CONC 31.2 g/dL (33.0-37.0); RBC 4.87 Mil/uL (3.80-5.20); RED CELL DISTRIBUTION WIDTH 19.5 % (11.5-14.5); WHITE BLOOD COUNT 18.4 K/uL (4.8-10.8)
--- NOTE | 2019-01-27 08:31 | CP.PCM.PN ---
Subjective - Date & Time of Evaluation Date of Evaluation: 01/27/19 Time of Evaluation: 08:31 - Subjective Subjective: COUGH PERSISTS BUT SOB HAS IMPROVED PT WANTS TO GO HOME Objective - Vital Signs/Intake and Output Vital Signs (last 24 hours): Temp Pulse Resp BP Pulse Ox 98.0 F 67 20 121/73 99 01/26/19 19:39 01/26/19 21:13 01/26/19 19:39 01/26/19 21:13 01/26/19 19:39 - Medications Medications: Current Medications Albuterol/Ipratropium (Duoneb 3 Mg/0.5 Mg (3 Ml) Ud) 3 ml INH RQ6 [facility] Last Admin: 01/27/19 07:28 Dose: 3 ml Amlodipine Besylate (Norvasc) 10 mg PO DAILY [facility] Last Admin: 01/26/19 09:34 Dose: 10 mg Atorvastatin Calcium (Lipitor) 10 mg PO HS [facility] Last Admin: 01/26/19 21:12 Dose: 10 mg Enoxaparin Sodium (Lovenox) 40 mg SC DAILY [facility]; Protocol Last Admin: 01/26/19 08:14 Dose: 40 mg Hydralazine HCl (Apresoline) 50 mg PO TID [facility] Last Admin: 01/26/19 16:18 Dose: 50 mg Azithromycin 500 mg/ Sodium (Chloride) 250 mls @ 250 mls/hr IVPB DAILY [facility] Last Admin: 01/26/19 08:12 Dose: 250 mls/hr Insulin Human Regular (Humulin R) 0 units SC ACHS [facility]; Protocol Last Admin: 01/27/19 06:38 Dose: Not Given Metformin HCl (Glucophage) 1,000 mg PO BIDWM [facility] Last Admin: 01/26/19 16:19 Dose: 1,000 mg Metoprolol Tartrate (Lopressor) 50 mg PO BID@0900,2100 [facility] Last Admin: 01/26/19 21:13 Dose: 50 mg Montelukast Sodium (Singulair) 10 mg PO HS [facility] Last Admin: 01/26/19 21:13 Dose: 10 mg Nabumetone (Relafen) 750 mg PO BID [facility] Last Admin: 01/26/19 08:16 Dose: 750 mg Nystatin/Triamcinolone Acetonide (Mycolog Ii Oint) 1 applic TOP TID [facility] Last Admin: 01/26/19 13:49 Dose: 1 applic Pantoprazole Sodium (Protonix Ec Tab) 40 mg PO DAILY [facility] Last Admin: 01/26/19 08:17 Dose: 40 mg Prednisone (Prednisone Tab) 10 mg PO DAILY [facility] Last Admin: 01/26/19 08:15 Dose: 10 mg Promethazine HCl/Dextromethorphan (Phenergan Dm Syrup) 10 ml PO Q6 [facility] Last Admin: 01/27/19 04:37 Dose: 10 ml Fluticasone/Salmeterol (Advair Diskus 250/50) 1 puff IH Q12 [facility] Last Admin: 01/26/19 21:12 Dose: 1 puff - Labs Labs: 01/27/19 06:25 01/26/19 05:55 - Constitutional Appears: No Acute Distress - Head Exam Head Exam: ATRAUMATIC, NORMAL INSPECTION, NORMOCEPHALIC - Eye Exam Eye Exam: EOMI, Normal appearance, PERRL Pupil Exam: NORMAL ACCOMODATION, PERRL - ENT Exam ENT Exam: Mucous Membranes Moist, Normal Exam - Neck Exam Neck Exam: Full ROM, Normal Inspection. absent: Lymphadenopathy - Respiratory Exam Respiratory Exam: Prolonged Expiratory Phase, Wheezes, NORMAL BREATHING PATTERN - Cardiovascular Exam Cardiovascular Exam: REGULAR RHYTHM, +S1, +S2. absent: Murmur - GI/Abdominal Exam GI & Abdominal Exam: Soft, Normal Bowel Sounds. absent: Tenderness - Rectal Exam Rectal Exam: NORMAL INSPECTION - Extremities Exam Extremities Exam: Full ROM, Normal Capillary Refill, Normal Inspection. absent: Joint Swelling, Pedal Edema - Back Exam Back Exam: NORMAL INSPECTION - Neurological Exam Neurological Exam: Alert, Awake, CN II-XII Intact, Normal Gait, Oriented x3 - Psychiatric Exam Psychiatric exam: Normal Affect, Normal Mood - Skin Skin Exam: Dry, Intact, Normal Color, Warm Assessment and Plan - Assessment and Plan (Free Text) Assessment: ACUTE EXAC OF COPD LEUKOCYTOSIS URI DM HTN Plan: CONTINUE TO TAPER STEROIDS PLAN D/C IN AM IF STABLE
[2019-01-27] MEDS: Enoxaparin 40 mg Syringe SC SCH (08:37)
[2019-01-27] MEDS: Azithromycin 500 MG in Sodium Chloride 0.9% 250 ML IVPB SCH (08:37)
[2019-01-27] MEDS: Fluticasone-Salmeterol 250-50mcg Diskus IH SCH ×2 (08:38→21:07)
[2019-01-27] MEDS: Mycolog II OINT TOP SCH ×2 (08:40→12:14)
[2019-01-27] MEDS: Pantoprazole 40 mg EC Tab PO SCH (08:41)
[2019-01-27 16:43] VITALS: RESP 20
[2019-01-28] MEDS: Albuterol-Ipratrop 3 mg / 0.5 (3 ml) UD INH SCH ×2 (01:07→07:25)
[2019-01-28] MEDS: Promethazine DM 12.5 mg-30 mg/10 ml Syrup PO SCH (04:47)
[2019-01-28 06:04] LABS: MEAN CELL VOLUME 72.8 fl (81.0-99.0); MEAN CORPUSCULAR HGB CONC 31.6 g/dL (33.0-37.0); RBC 4.37 Mil/uL (3.80-5.20); RED CELL DISTRIBUTION WIDTH 19.3 % (11.5-14.5); WHITE BLOOD COUNT 13.5 K/uL (4.8-10.8)
[2019-01-28] MEDS: Insulin Regular 100 units/ml SC SCH (07:36)
[2019-01-28 07:55] VITALS: TEMP 98.4; O2SAT 100
--- NOTE | 2019-01-28 08:28 | CP.PCM.DIS ---
Provider - Provider Date of Admission: 01/23/19 17:41 Attending physician: Benjamin Whitt MD Consults: 01/23/19 18:07 Pastoral Care Referral Routine Comment: Physician Instructions: Reason For Exam: no advance directive Time Spent in preparation of Discharge (in minutes): 35 Diagnosis - Discharge Diagnosis (1) Arthritis Status: Chronic Priority: Medium Comment: continue nsaids,prn (2) Anxiety Status: Chronic Priority: Medium Comment: reassurance (3) COPD exacerbation Status: Acute Priority: High Comment: clinically improved with rx. will continue bronchodilator rx (4) Chr obstructive pulmonary disease w/ acute lower respiratory infxn Status: Acute (5) Hyperglycemia Status: Acute Priority: Medium Comment: due to steroids. will repeat as out pt (6) Hypertension Status: Chronic Priority: Medium Comment: stable with meds (7) Diabetes 1.5, managed as type 2 Status: Chronic Priority: Medium Comment: uncontrolled due to steroids and acute illness. will increase metformin to 1gm bid. monitor acuchecks (8) Leukocytosis Status: Acute Priority: Medium Comment: continue oral antibiotics and d/c steroids. repeat labs as out pt Hospital Course - Lab Results Lab Results: Micro Results 01/24/19 17:15 Sputum Gram Stain - Final 01/24/19 17:15 Sputum Sputum Culture - Final NORMAL ORAL TERESA Most Recent Lab Values WBC 13.5 K/uL (4.8-10.8) H 01/28/19 05:40 RBC 4.37 Mil/uL (3.80-5.20) 01/28/19 05:40 Hgb 10.0 g/dL (12.0-16.0) L 01/28/19 05:40 Hct 31.8 % (34.0-47.0) L 01/28/19 05:40 MCV 72.8 fl (81.0-99.0) L 01/28/19 05:40 MCH 23.0 pg (27.0-31.0) L 01/28/19 05:40 MCHC 31.6 g/dL (33.0-37.0) L 01/28/19 05:40 RDW 19.3 % (11.5-14.5) H 01/28/19 05:40 Plt Count 297 K/uL (130-400) 01/28/19 05:40 MPV 8.2 fl (7.2-11.7) 01/26/19 05:55 Neut % (Auto) 72.6 % (50.0-75.0) 01/26/19 05:55 Lymph % (Auto) 18.5 % (20.0-40.0) L 01/26/19 05:55 [place] % (Auto) 7.9 % (0.0-10.0) 01/26/19 05:55 Eos % (Auto) 0.5 % (0.0-4.0) 01/26/19 05:55 Baso % (Auto) 0.5 % (0.0-2.0) 01/26/19 05:55 Neut # (Auto) 12.7 K/uL (1.8-7.0) H 01/26/19 05:55 Lymph # (Auto) 3.3 K/uL (1.0-4.3) 01/26/19 05:55 [place] # (Auto) 1.4 K/uL (0.0-0.8) H 01/26/19 05:55 Eos # (Auto) 0.1 K/uL (0.0-0.7) 01/26/19 05:55 Baso # (Auto) 0.1 K/uL (0.0-0.2) 01/26/19 05:55 Sodium 136 mmol/l (132-148) 01/26/19 05:55 Potassium 3.6 MMOL/L (3.6-5.0) 01/26/19 05:55 Chloride 99 mmol/L (98-107) 01/26/19 05:55 Carbon Dioxide 30 mmol/L (22-30) 01/26/19 05:55 Anion Gap 11 (10-20) 01/26/19 05:55 BUN 28 mg/dl (7-17) H 01/26/19 05:55 Creatinine 0.8 mg/dl (0.7-1.2) 01/26/19 05:55 Est GFR ( Amer) > 60 01/26/19 05:55 Est GFR (Non-Af Amer) > 60 01/26/19 05:55 POC Glucose (mg/dL) 157 mg/dL (65-110) H 01/28/19 05:51 Random Glucose 149 mg/dL (65-105) H 01/26/19 05:55 Hemoglobin A1c 8.7 % (4.2-6.5) H 01/26/19 05:55 Calcium 8.9 mg/dL (8.4-10.2) 01/26/19 05:55 - Hospital Course Hospital Course: 68 yr old female who was admitted to the medical floor because of copd exacerbation then transferred to the transitional care unit for further therapy with iv antibiotics,steroids and aerosolized bronchodilators.She had a persistent cough with shortness of breath and exercise intolerance which gradually improved with therapy.Her hospital course was complicated by hyperglycemia due to uri and iv steroids. She will be discharged today and further follow up including repeat of serum glucose and wbc will be performed in the office.She is advised to return to er if symptoms worsen or persist Discharge Exam - Head Exam Head Exam: ATRAUMATIC, NORMAL INSPECTION, NORMOCEPHALIC - Eye Exam Eye Exam: EOMI, Normal appearance, PERRL Pupil Exam: NORMAL ACCOMODATION, PERRL - GI/Abdominal Exam GI & Abdominal Exam: Normal Bowel Sounds - Rectal Exam Rectal Exam: NORMAL INSPECTION - Neurological Exam Neurological exam: Alert, CN II-XII Intact, Normal Gait, Oriented x3, Reflexes Normal - Psychiatric Exam Psychiatric exam: Normal Affect, Normal Mood - Skin Skin Exam: Dry, Intact, Normal Color, Warm Discharge Plan - Follow Up Plan Condition: GOOD Disposition: HOME/ ROUTINE Patient education suggested?: Yes Additional Instructions: follow up with dr whitt
[2019-01-28] MEDS: Azithromycin 500 MG in Sodium Chloride 0.9% 250 ML IVPB SCH (08:30)
[2019-01-28] MEDS: Fluticasone-Salmeterol 250-50mcg Diskus IH SCH (08:31)
[2019-01-28] MEDS: Pantoprazole 40 mg EC Tab PO SCH (08:32)
[2019-01-28 08:33] VITALS: BP 153/79; PULSE 62
[2019-01-28] MEDS: Enoxaparin 40 mg Syringe SC SCH (08:33)
[2019-01-28] MEDS: Mycolog II OINT TOP SCH (09:58)
== END 2019-01-28 10:41 | disposition home or self-care (01) | DRG 192 ==
LOC: H.TCU 17:41
PROVIDERS: ADMIT Internal Medicine Pulmonary Disease; ATTEND Internal Medicine Pulmonary Disease
PROC: 5A0955Z Assistance with Respiratory Ventilation, Greater than 96 Consecutive Hours (ICD-10-PCS; principal; 2019-01-23)
DX: J44.1 Chronic obstructive pulmonary disease with (acute) exacerbation (principal); J44.0 Chronic obstructive pulmonary disease with (acute) lower respiratory infection; J20.9 Acute bronchitis, unspecified; E11.65 Type 2 diabetes mellitus with hyperglycemia; I10 Essential (primary) hypertension; F41.8 Other specified anxiety disorders; M06.9 Rheumatoid arthritis, unspecified; M19.90 Unspecified osteoarthritis, unspecified site; T38.0X5A Adverse effect of glucocorticoids and synthetic analogues, initial encounter; L29.8 Other pruritus; Z88.3 Allergy status to other anti-infective agents; Z91.013 Allergy to seafood